=== PATIENT | male | born 1950 | race Caucasian/White ===

== ENCOUNTER 2023-10-16 07:06 | Day surgery (SDC) | payer MEDICARE, SELFPAY ==
[2023-10-08 08:11] LABS: Hematocrit 43.7 % (40-54); Mean Corpuscular Hgb 30.8 pg (27.0-32.0); Mean Corpuscular Volume 96.3 fL (80-94); Mean Platelet Vol. 10.3 fl (6.2-12.0); Platelet Count 209 K/mm3 (150-450); RBC Distribution Width CV 13.9 % (11.6-14.6); RBC Distribution Width SD 49.4 fl (35.1-43.9); Red Blood Count 4.54 M/mm3 (4.6-6.2)
[2023-10-08 08:49] LABS: Anion Gap 4 (5-15); BUN 41 mg/dL (7-18); BUN/Creat Ratio 23.3 RATIO (10-20); Chloride 111 mmol/L (98-107); Creatinine, Serum 1.76 mg/dL (0.70-1.30); EST Glomerular Filtration Rate 40 mL/min (>60); Est Glom Filt Rate - Afr Amer 49 mL/min (>60); Glucose 76 mg/dL (74-106); Potassium 4.6 mmol/L (3.5-5.1); Sodium Level 142 mmol/L (136-145)
[2023-10-16] VITALS (13 sets, daily range): BP systolic 130–174; BP diastolic 74–92; PULSE 57–85; RESP 16–18; TEMP 36.2–36.8; O2SAT 95–100; BMI 18.1
--- OUTSIDE RECORDS SUMMARY | 2023-10-16 07:16 | XMS RPT_ITS | CCD ---
Author Name Unknown Address [address] [place] [address] Organization [facility] Care Team Providers Care Barrel Driller Name Role Phone SHWETA DO, DR GLORIA Davis Primary Care Physician SHWETA DO, DR GLORIA Davis Primary Care Unavailabl e SHWETA DO, DR GLORIA Davis Attending Unavailabl e SHWETA DO, DR GLORIA Davis Primary Care Unavailabl e SHWETA DO, DR GLORIA Davis Attending Unavailabl e SHWETA DO, DR GLORIA Davis Primary Care Unavailabl e SHWETA DO, DR GLORIA Davis Attending Unavailabl e SHWETA DO, DR GLORIA Davis Primary Care Unavailbrain ORONA MD, DR ISIS Davis Attending Unavailable SHWETA DO, DR GLORIA Davis Primary Care Unavailabl e DESHAWNROBERTO Attending Unavailable SHWETA DO, DR GLORIA Davis Primary Care Unavailabl e ROBERTO HESS Attending Unavailable SHWETA DO, DR GLORIA Davis Primary Care Unavailbrain ORONA MD, DR ISIS Davis Attending Fazal CARRINGTON MD, FRANDY Reinoso Consulting Swapna APPIAH MD, DR ROLY Oviedo Attending Gretchen APPIAH MD, DR ROLY Oviedo Admitting Unavai lable SHWETA DO, DR GLORIA Davis Primary Care Unavailabl e LASKOVSKI , NESSA Consulting Swapna APPIAH MD, DR ROLY Oviedo Attending Gretchen lable SHWETA , DR GLORIA Davis Primary Care Unavailabl e Allergies Allergy Classification Reported Allergen(s) Allergy Type Date of Onset Reaction(s) Facility (9 sources) Warfarin; Translations: [warfarin] Drug Allergy Headache [facility] Medications Current Medications Medication Drug Class(es) Dates Sig (Normalized) Sig (Original) acetaminophen 500 mg / diphenhydrAMINE hydrochloride 25 mg oral tablet (3 sources) Histamine-1 Receptor Antagonist Start: 06-25-2023 take 1 tablet by mouth once daily in the evening Tylenol PM Extra Strength oral tablet Dose = 2 tab(s), Oral, qDay, 0 Refill(s) Start Date: 06/25/23 Status: Ordered amiodarone hydrochloride 200 mg oral tablet (3 sources) Antiarrhythmic Start: 06-26-2023 amiodarone 200 mg oral tablet Dose : 200 mg = 1 tab(s), Oral, BIDM, # 60 tab(s), 6 Refill(s), Pharmacy: [facility], 182.9, cm, 06/25/23 6:08:00 EDT, Height, kg, 06/25/23 6:08:00 EDT, Dosing Weight Start Date: 06/26/23 Status: Ordered apixaban 5 mg oral tablet (6 sources) Factor Xa Inhibitor Start: 03-25-2023 Eliquis 5 mg oral tablet Dose : 5 mg = 1 tab(s), Oral, BID, # 60 tab(s), 11 Refill(s), Pharmacy: [facility], 188, cm, 03/25/23 15:08:00 EDT, Height, 69 Start Date: 03/25/23 Status: Ordered aspirin 81 mg delayed release oral tablet (3 sources) Platelet Aggregation Inhibitor, Nonsteroidal Anti-inflammatory Drug Start: 06-08-2021 aspirin 81 mg oral delayed release tablet Dose : 81 mg = 1 tab(s), Oral, qDay, 0 Refill(s) Start Date: 06/08/21 Status: Ordered Completed/Discontinued Medications Medication Drug Class(es) Dates Sig (Normalized) Sig (Original) diazePAM 5 mg oral tablet (9 sources) Benzodiazepine Start: 04-03-2021 diazePAM 5 mg oral tablet 0.5 tab, Oral, QID, PRN Dizziness, 0 Refill(s), 69.8 Start Date: 04/03/21 Status: Ordered Problems Problem Classification Problem Date Documented Da te Episodic/Chronic Cancer of prostate (9 sources) History of malignant neoplasm of prostate 11-02-2021 Episodic Cardiac dysrhythmias (6 sources) Paroxysmal atrial fibrillation; Translations: [Persistent atrial fibrillation] 04-02-2021 Chronic Results Test Name Value Interpretation Reference Range Facil ity Vital Signs Date Time Vital Sign Value Performing Clinician Monaei lity 06-25-2023 09:15-0400 Diastolic Blood Pressure Non-Invasive [address] ROLY APPIAH MD [address] [place] [address] 06-25-2023 09:15-0400 Heart rate 70 /min DR ROLY APPIAH MD [address] [place] [address] 06-25-2023 09:15-0400 Respiratory rate 16 /min DR ROLY APPIAH MD [address] [place] [address] 06-25-2023 09:15-0400 Systolic Blood Pressure Non-Invasive [address] ROLY APPIAH MD [address] [place] [address] 06-25-2023 08:25-0400 Diastolic Blood Pressure Non-Invasive [address] ROLY APPIAH MD [address] [place] [address] 06-25-2023 08:25-0400 Heart rate 70 /min DR ROLY APPIAH MD [address] [place] [address] 06-25-2023 08:25-0400 Respiratory rate 16 /min DR ROLY APPIAH MD [address] [place] [address] 06-25-2023 08:25-0400 Systolic Blood Pressure Non-Invasive [address] ROLY APPIAH MD [address] [place] [address] 06-25-2023 08:14-0400 Diastolic Blood Pressure Non-Invasive [address] ROLY APPIAH MD [address] [place] [address] 06-25-2023 08:14-0400 Heart rate 71 /min DR ROLY APPIAH MD [address] [place] [address] 06-25-2023 08:14-0400 Respiratory rate 18 /min DR ROLY APPIAH MD [address] [place] [address] 06-25-2023 08:14-0400 Systolic Blood Pressure Non-Invasive [address] ROLY APPIAH MD [address] [place] [address] 06-25-2023 08:10-0400 Body temperature 98.42 [degF] DR ROLY APPIAH MD [address] [place] [address] 06-25-2023 08:05-0400 Respiratory Rate - Anes 0 br/min DR ROLY APPIAH MD [address] [place] [address] 06-25-2023 08:00-0400 Respiratory Rate - Anes 11 br/min DR ROLY APPIAH MD [address] [place] [address] 06-25-2023 07:55-0400 Respiratory Rate - Anes 0 br/min DR ROLY APPIAH MD [address] [place] [address] 06-25-2023 06:07-0400 Body height 182.[address] ROLY APPIAH MD [address] [place] [address] 06-25-2023 06:07-0400 Body temperature 96.44 [degF] DR ROLY APPIAH MD [address] [place] [address] 06-25-2023 06:07-0400 Body weight 66.[address] ROLY APPIAH MD [address] [place] [address] 06-25-2023 06:07-0400 Heart rate 90 /min DR ROLY APPIAH MD [address] [place] [address] 05-04-2023 07:32-0400 Heart rate 94 /min DR ROLY APPIAH MD [address] [place] [address] 05-04-2023 07:32-0400 Reason For Taking VItal Signs DR ROLY APPIAH MD [address] [place] [address] 05-04-2023 06:50-0400 Diastolic Blood Pressure Non-Invasive [address] ROLY APPIAH MD [address] [place] [address] 05-04-2023 06:50-0400 Heart rate 114 /min DR ROLY APPIAH MD [address] [place] [address] 05-04-2023 06:50-0400 Mean blood pressure 98 mm[Hg] DR ROLY APPIAH MD [address] [place] [address] 05-04-2023 06:50-0400 Reason For Taking VItal Signs DR ROLY APPIAH MD [address] [place] [address] 05-04-2023 06:50-0400 Systolic Blood Pressure Non-Invasive [address] ROLY APPIAH MD [address] [place] [address] 05-04-2023 06:38-0400 Blood Pressure Cuff Size DR ROLY APPIAH MD [address] [place] [address] 05-04-2023 06:38-[address] ROLY APPIAH MD [address] [place] [address] 05-04-2023 06:38-[address] ROLY Davis MD [address] [place] [address] 05-04-2023 06:38-0400 Body temperature 98.24 [degF] DR ROLY APPIAH MD [address] [place] [address] 05-04-2023 06:38-0400 Diastolic Blood Pressure Non-Invasive [address] ROLY APPIAH MD [address] [place] [address] 05-04-2023 06:38-0400 Heart rate 83 /min DR ROLY APPIAH MD [address] [place] [address] 05-04-2023 06:38-0400 Reason For Taking VItal Signs DR ROLY APPIAH MD [address] 05-04-2023 06:38-0400 Respiratory rate 16 /min DR ROLY APPIAH MD [address] [place] [address] 05-04-2023 06:38-0400 Systolic Blood Pressure Non-Invasive [address] ROLY APPIAH MD [address] [place] [address] 05-04-2023 04:19-0400 Blood Pressure Cuff Size DR ROLY APPIAH MD [address] [place] [address] 05-04-2023 04:19-[address] ROLY APPIAH MD [address] [place] [address] 05-04-2023 04:19-[address] ROLY Davis MD [address] [place] [address] 05-04-2023 04:19-0400 Body temperature 98.42 [degF] DR ROLY APPIAH MD [address] [place] [address] 05-04-2023 04:19-0400 Diastolic Blood Pressure Non-Invasive [address] ROLY APPIAH MD [address] [place] [address] 05-04-2023 04:19-0400 Mean blood pressure 93 mm[Hg] DR ROLY APPIAH MD [address] [place] [address] 05-04-2023 04:19-0400 Respiratory rate 16 /min DR ROLY APPIAH MD [address] [place] [address] 05-04-2023 04:19-0400 Systolic Blood Pressure Non-Invasive [address] ROLY APPIAH MD [address] [place] [address] 05-03-2023 23:24-0400 Blood Pressure Cuff Size DR ROLY APPIAH MD [address] [place] [address] 05-03-2023 23:24-[address] ROLY APPIAH MD [address] [place] [address] 05-03-2023 23:24-[address] ROLY Davis MD [address] [place] [address] 05-03-2023 23:24-0400 Body temperature 98.06 [degF] DR ROLY APPIAH MD [address] [place] [address] 05-03-2023 23:24-0400 Heart rate 70 /min DR ROLY APPIAH MD [address] [place] [address] 05-03-2023 23:24-0400 Respiratory rate 15 /min DR ROLY APPIAH MD [address] [place] [address] 05-03-2023 18:57-0400 Heart rate 70 /min DR ROLY APPIAH MD [address] [place] [address] 05-03-2023 18:51-0400 Body height [address] ROLY APPIAH MD [address] [place] [address] 05-03-2023 18:51-0400 Body weight 66.[address] ROLY APPIAH MD [address] [place] [address] 05-03-2023 18:51-0400 Body weight 18.9 kg/m2 DR ROLY APPIAH MD [address] [place] [address] 05-03-2023 15:40-0400 Respiratory Rate - Anes 0 br/min DR ROLY APPIAH MD [address] [place] [address] 05-03-2023 15:35-0400 Body temperature 97.34 [degF] DR ROLY APPIAH MD [address] [place] [address] 05-03-2023 15:35-0400 Respiratory Rate - Anes 0 br/min DR ROLY APPIAH MD [address] [place] [address] 05-03-2023 15:30-0400 Respiratory Rate - Anes 0 br/min DR ROLY APPIAH MD [address] [place] [address] 05-03-2023 15:05-0400 Body temperature 91.38 [degF] DR ROLY APPIAH MD [address] [place] [address] 05-03-2023 15:00-0400 Body temperature 89.98 [degF] DR ROLY APPIAH MD [address] [place] [address] 05-03-2023 14:55-0400 Body temperature 91.9 [degF] DR ROLY APPIAH MD [address] [place] [address] 05-03-2023 09:55-0400 Body height [address] ROLY APPIAH MD [address] [place] [address] 05-03-2023 09:55-0400 Body weight 66.[address] ROLY APPIAH MD [address] [place] [address] 05-03-2023 09:55-0400 Heart rate 84 /min DR ROLY APPIAH MD [facility] Encounters Encounter Date Encounter Type Care Provider Facility Start: 09-06-2023 End: 09-07-[address] GLORIA SNYDERR DO Facility:B Start: 09-06-2023 End: 09-06-[address] ROBERTO HESS MD [facility] Start: 07-26-2023 End: 07-27-[address] GLORIA HALL DO Facility:B Start: 06-25-2023 End: 06-25-[address] ROLY APPIAH MD Facility:A Start: 06-25-2023 End: 06-25-[address] ROLY APPIAH MD [facility] Start: 05-16-2023 End: 05-17-[address] GLORIA SNYDERR DO Facility:B Start: 05-07-2023 End: 05-08-[address] GLORIA SNYDERR DO Facility:B Start: 05-07-2023 End: 05-07-[address] GLORIA HALL DO [facility] Start: 05-07-2023 End: 05-08-[address] GLORIA SNYDERR DO Facility:B Start: 05-07-2023 End: 05-07-[address] GLORIA HALL DO [facility] Start: 05-03-2023 End: 05-04-2023 ambulatory FRANDY CARRINGTON MD Facility:A Start: 05-03-2023 End: 05-04-[address] ROLY APPIAH MD [facility] Start: 06-15-2022 End: 06-15-[address] ROBERTO HESS MD [facility] Start: 05-05-2022 End: 05-05-[address] GLORIA HALL DO [facility] Start: 11-09-2021 End: 11-09-[address] GLORIA HALL DO [facility] Procedures Date Procedure Procedure Detail Performing Clinician Start: 06-25-[address] ROBERTO MILLIGAN MD Immunizations Immunization Date Immunization Notes Care Provider Fa [facility] 07-01-2023 SARS-CoV-2 (COVID-19 ) [id number] DR ROBERTO HESS MD [facility] 06-15-2022 SARS-CoV-2 (CV19)mRNA-[address] ROBERTO HESS MD [facility] 06-15-2022 influenza, high dose seasonal, preservative-free DR ROBERTO HESS MD [facility] 11-02-2021 pneumococcal polysaccharide vaccine, 23 valent; Translations: [Pneumovax 23] DR GLORIA HALL DO [facility] 07-13-2021 SARS-CoV-2 (COVID-19 ) mRNA-[address] ROBERTO HESS MD [facility] 06-22-2021 influenza, high dose seasonal, preservative-free; Translations: [Fluad Quadrivalent PF ] DR GLORIA HALL DO [facility] 11-24-2020 SARS-CoV-2 (COVID-19 ) [id number] GLORIA HALL DO [facility] Payers Date Payer Category Payer Unknown [id number] 1950 Unknown [id number] 2.16.8 [id number] 1950 Unknown [id number] 2.16.8 [id number] 1950 Unknown [id number] 2.16.8 [id number] 1950 Unknown [id number] 2.16.8 [id number] 1950 Unknown [id number] 2.16.8 [id number] 1950 Unknown [id number] 2.16.8 [id number] 1950 Unknown [id number] 2.16.8 [id number] 1950 Unknown [id number] 2.16.8 [id number] 1950 Unknown [id number] 2.16.8 [id number] Social History Date Type Detail Facility Start: 09-16-2019 Never smoked tobacco (f inding) [facility] Functional Status Date Assessment Result Facility 06-25-2023 Functional Status Awake [facility] 06-25-2023 Functional Status [facility] 06-25-2023 Functional Status Maintained [facility] 05-04-2023 Functional Status None [facility] 05-04-2023 Functional Status Done [facility] 05-04-2023 Functional Status Non-Slip footw ear, Room check performed [facility] 05-04-2023 Functional Status [facility] 05-03-2023 Functional Status Sensory Deficits None [facility] 05-03-2023 Functional Status Patient Identified Verb [facility] 05-03-2023 Functional Status Maintained [facility] Mental Status Date Assessment Result Facility 06-25-2023 Mental Status Oriented x 4 [facility] 05-04-2023 Mental Status Orientation Oriented x 4 [facility] 05-04-2023 Mental Status [facility] 05-03-2023 Mental Status [facility] Clinical Notes 04-29-2023 to 06-25-2023 Note Date & Type Note Facility 06-25-2023 Hospital Discharg e instructions Patient Education 06/25/2023 08:38:38 3- Cardioversion (06/2018) (Custom) CARDIOVERSION Discharge instructions ACTIVITY/SAFETY Please refrain from the following activities for 24 hours: Do not drive a car or operate heavy equipment. Do not consume alcohol for 24 hours. Do not return to work for 24 hours. Postpone signing any important papers or making important decisions. COMFORT Call your primary doctor if you have any redness, tenderness, warmth, discharge or swelling at your IV site. Your chest or back may get red and/or develop a burning sensation. Apply fragrance-free Aloe Vera lotion. Take Tylenol as needed for pain. DIET When you return home, resume your regular diet unless otherwise directed. Some of the sedatives, anesthetic medications you received today may make you nauseated. If vomiting persists, call your doctor. Restart your usual medications unless otherwise instructed by your doctor. If you have any questions, please call your doctor at the number listed on your follow up instructions. Document Released: 08/26/2006 Document Revised: 08/12/2013 Document Reviewed: 08/27/2014 ExitCare Patient Information 2015 [employer]. This information is not intended to replace advice given to you by your health care provider. Make sure you discuss any questions you have with your health care provider. Follow Up Care 06/17/2023 14:08:59 With:ROLY APPIAH MD Address: [address] [facility] [address] [place] [address]- When:08/05/2023 14:30:00 [facility] 06-25-2023 Summary of episod e note Discharge Instructions Thank you for allowing [facility] to assist you with your healthcare needs. The following is important discharge information regarding your hospital visit. Your Care Team GLORIA HALL DO What to do next Scheduled Follow-Up Appointments Appointment Type When With Where Contact InformationCV OV 08/05/2023 02:30 PM EST [facility] Primetime Enhanced 05/07/2024 08:00 AM EDT GLORIA HALL DO [facility] [place] Follow Up Appointments Follow Up with ROLY APPIAH MD When 08/05/2023 02:30 PM EST Where: [address] [facility] [address] [place] [address]- The Following Activity and Diet Have Been Ordered for You Discharge Activity - Ordered -- Follow the post-operative/post-procedure activity instructions provided by your physician's office., 06/25/23 8:36:00 EDT Discharge Diet - Ordered -- Follow the post-operative/post-procedure diet instructions provided by your physician's office., 06/25/23 8:36:00 EDT The Following Equipment Has Been Ordered for You Discharge Home Equipment Discharge Wound Care - Ordered -- Follow the post-operative/post-procedure wound care instructions provided by your physician's office., 06/25/23 8:36:00 EDT The Following Treatments Have Been Ordered for You Discharge Labs No qualifying data available. Discharge Radiology No qualifying data available. Other Therapies No qualifying data available. Post Acute Orders No qualifying data available. Someone Will Contact You Regarding These Home Health Referrals No home referrals have been ordered for you. No one will call you. Allergies warfarin (Headache) Medications Please ask your primary doctor or pharmacist before taking any other medication not listed, including over the counter drugs, herbal medications, vitamins and or supplements as they may interact with your home medications. What How Much When Instructions Last Dose New amiodarone (amiodarone 200 mg oral tablet) 1 tab(s) by mouth Twice daily with meals Refills: [address] [facility] Unchanged acetaminophen-diphenhydramine (Tylenol PM Extra Strength oral tablet) 2 tab(s) by mouth Once a day Unchanged apixaban (Eliquis 5 mg oral tablet) 1 tab(s) by mouth Two (2) times a day Unchanged cetirizine (Zyrtec 10 mg oral tablet (NF)) 1 tab(s) by mouth Every day Unchanged diazePAM (diazePAM 5 mg oral tablet) 0.5 tab by mouth Four (4) times a day as needed for Dizziness Unchanged dilTIAZem (Cardizem CD 120 mg/ 24 hours oral capsule, extended release) 1 cap by mouth Once a day generic acceptable Unchanged herbal/ nutritional product (cranberry oral capsule) 1,500 Milligram Once a day Unchanged magnesium oxide (magnesium oxide 500 mg oral tablet) by mouth Once a day Unchanged meclizine (meclizine 25 mg oral tablet) 1 tab(s) by mouth Every 6 hours as needed for as needed for dizziness Unchanged multivitamin (Multivitamin) 1 tab(s) by mouth Every day Unchanged omega-3 polyunsaturated fatty acids (Fish Oil 1200 mg oral capsule) 1 cap by mouth Every day Unchanged omeprazole (omeprazole 20 mg oral delayed release capsule) 1 cap by mouth Once a day Pharmacy Information [facility]: [address], [place] [id number] [phone] Please take this list to your next doctor s visit. Bring all medications you take, including over the counter medications, herbals and other supplements with you to your doctor s visit. Patients and families are reminded to discard old lists and to update any records with all medication providers or retail pharmacies. Medication Leaflets amiodarone (oral) (Susan dale) Pacerone What is the most important information I should know about amiodarone? Amiodarone is for use only in treating life-threatening heart rhythm disorders. You should not take this medicine if you are allergic to amiodarone or iodine, or if you have heart block, a history of slow heartbeats that have caused you to faint, or if your heart cannot pump blood properly. Amiodarone can cause dangerous side effects on your heart, liver, lungs, or vision. Call your doctor or get medical help at once if you have: chest pain, fast or pounding heartbeats, trouble breathing, vision problems, upper stomach pain, vomiting, dark urine, jaundice (yellowing of the skin or eyes), or if you cough up blood. What is amiodarone? Amiodarone affects the rhythm of your heartbeats. Amiodarone is used to help keep the heart beating normally in people with life-threatening heart rhythm disorders of the ventricles (the lower chambers of the heart that allow blood to flow out of the heart). Amiodarone is used to treat ventricular tachycardia or ventricular fibrillation. Amiodarone is for use only in treating life-threatening heart rhythm disorders. Amiodarone may also be used for purposes not listed in this medication guide. What should I discuss with my healthcare provider before taking amiodarone? You should not use this medicine if you are allergic to amiodarone or iodine, or if you have: a serious heart condition called 'AV block' (2nd or 3rd degree), unless you have a pacemaker; a history of slow heartbeats that have caused you to faint; or if your heart cannot pump blood properly. Amiodarone can cause dangerous side effects on your heart, liver, lungs, or thyroid. Tell your doctor if you have ever had: asthma or another lung disorder; liver disease; a thyroid disorder; vision problems; high or low blood pressure; an electrolyte imbalance (such as low levels of potassium or magnesium in your blood); or if you have a pacemaker or defibrillator implanted in your chest. Taking amiodarone during may harm an unborn baby, or cause thyroid problems or abnormal heartbeats in the baby after it is born. Amiodarone may also affect the child's growth or development (speech, movement, academic skills) later in life. Tell your doctor if you are or if you become . You should not breast-feed while taking amiodarone, and for several months after stopping. Amiodarone takes a long time to clear from your body. Talk to your doctor about the best way to feed your baby during this time. How should I take amiodarone? Follow all directions on your prescription label and read all medication guides or instruction sheets. Your doctor may occasionally change your dose. Use the medicine exactly as directed. You will receive your first few doses in a hospital setting, where your heart rhythm can be monitored. If you have been taking another heart rhythm medicine, you may need to gradually stop taking it when you start using amiodarone. Follow your doctor's dosing instructions very carefully. You may take amiodarone with or without food, but take it the same way each time. It may take up to 3 weeks before your heart rhythm improves. Keep using the medicine as directed even if you feel well. Amiodarone can have long lasting effects on your body. You may need frequent medical tests while using this medicine and for several months after your last dose. If you need surgery (including laser eye surgery), tell the surgeon ahead of time that you are using amiodarone. This medicine can affect the results of certain medical tests. Tell any doctor who treats you that you are using amiodarone. Store at room temperature away from moisture, heat, and light. What happens if I miss a dose? Skip the missed dose and use your next dose at the regular time. Do not use two doses at one time. What happens if I overdose? Seek emergency medical attention or call the Poison Help line at . An overdose of amiodarone can be fatal. Overdose symptoms may include weakness, slow heart rate, feeling light-headed, or loss of consciousness. What should I avoid while taking amiodarone? Avoid driving or hazardous activity until you know how this medicine will affect you. Your reactions could be impaired. Grapefruit may interact with amiodarone and lead to unwanted side effects. Avoid the use of grapefruit products. Avoid taking an herbal supplement containing [place] wort. Amiodarone could make you sunburn more easily. Avoid sunlight or tanning beds. Wear protective clothing and use sunscreen (SPF 30 or higher) when you are outdoors. What are the possible side effects of amiodarone? Get emergency medical help if you have signs of an allergic reaction: hives; difficulty breathing; swelling of your face, lips, tongue, or throat. Amiodarone takes a long time to completely clear from your body. You may continue to have side effects from amiodarone after you stop using it. Call your doctor at once if you have any of these side effects, even if they occur up to several months after you stop using amiodarone: wheezing, cough, chest pain, cough with bloody mucus, fever; a new or a worsening irregular heartbeat pattern (fast, slow, or pounding heartbeats); a light-headed feeling, like you might pass out; blurred vision, seeing halos around lights (your eyes may be more sensitive to light); liver problems--nausea, vomiting, stomach pain (upper right side), tiredness, dark urine, jaundice (yellowing of the skin or eyes); nerve problems--loss of coordination, muscle weakness, uncontrolled muscle movement, or a prickly feeling in your hands or lower legs; signs of overactive thyroid--weight loss, thinning hair, feeling hot, increased sweating, tremors, feeling nervous or irritable, irregular menstrual periods, swelling in your neck (goiter); or signs of underactive thyroid--weight gain, tiredness, depression, trouble concentrating, feeling cold. Common side effects may include: nausea, vomiting, loss of appetite; or constipation. This is not a complete list of side effects and others may occur. Call your doctor for medical advice about side effects. You may report side effects to FDA at 1-926-FLH-6206. What other drugs will affect amiodarone? Sometimes it is not safe to use certain medications at the same time. Some drugs can affect your blood levels of other drugs you take, which may increase side effects or make the medications less effective. Amiodarone takes a long time to completely clear from your body. Drug interactions are possible for up to several months after you stop using amiodarone. Talk to your doctor before taking any medication during this time. Keep track of how long it has been since your last dose of amiodarone. Many drugs can affect amiodarone. This includes prescription and criv-loo-ooheekj medicines, vitamins, and herbal products. Not all possible interactions are listed here. Tell your doctor about all your current medicines and any medicine you start or stop using. Where can I get more information? Your doctor or pharmacist can provide more information about amiodarone. Remember, keep this and all other medicines out of the reach of children, never share your medicines with others, and use this medication only for the indication prescribed. Every effort has been made to ensure that the information provided by [employer]. ('[employer]') is accurate, up-to-date, and complete, but no guarantee is made to that effect. Drug information contained herein may be time sensitive. [employer] information has been compiled for use by healthcare practitioners and consumers in the [place] and therefore [employer] does not warrant that uses outside of the [place] are appropriate, unless specifically indicated otherwise. [employer] drug information does not endorse drugs, diagnose patients or recommend therapy. [employer] drug information is an informational resource designed to assist licensed healthcare practitioners in caring for their patients and/or to serve consumers viewing this service as a supplement to, and not a substitute for, the expertise, skill, knowledge and judgment of healthcare practitioners. The absence of a warning for a given drug or drug combination in no way should be construed to indicate that the drug or drug combination is safe, effective or appropriate for any given patient. [employer] does not assume any responsibility for any aspect of healthcare administered with the aid of information [employer] provides. The information contained herein is not intended to cover all possible uses, directions, precautions, warnings, drug interactions, allergic reactions, or adverse effects. If you have questions about the drugs you are taking, check with your doctor, nurse or pharmacist. Copyright 9390-6238 [employer]. Version: 7.01. Revision Date: 07/15/2018. Education Materials CARDIOVERSION Discharge instructions ACTIVITY/SAFETY Please refrain from the following activities for 24 hours: Do not drive a car or operate heavy equipment. Do not consume alcohol for 24 hours. Do not return to work for 24 hours. Postpone signing any important papers or making important decisions. COMFORT Call your primary doctor if you have any redness, tenderness, warmth, discharge or swelling at your IV site. Your chest or back may get red and/or develop a burning sensation. Apply fragrance-free Aloe Vera lotion. Take Tylenol as needed for pain. DIET When you return home, resume your regular diet unless otherwise directed. Some of the sedatives, anesthetic medications you received today may make you nauseated. If vomiting persists, call your doctor. Restart your usual medications unless otherwise instructed by your doctor. If you have any questions, please call your doctor at the number listed on your follow up instructions. Document Released: 08/26/2006 Document Revised: 08/12/2013 Document Reviewed: 08/27/2014 ExitCare Patient Information 2015 [employer] [facility]. This information is not intended to replace advice given to you by your health care provider. Make sure you discuss any questions you have with your health care provider. Additional Information VACCINATE! IT SAVES LIVES! Members of the community who have not yet received the COVID-19 vaccine and would like to receive it can visit one of [facility] vaccine clinics. There are many vaccine clinic locations within the [facility] [address] [facility]. For locations and available times, please visit [email or web address].o wao.gov/. It is important to note that some COVID mobile vaccine clinics are held outdoors and may be canceled in rainy or stormy conditions. To learn more about pediatric vaccinations (ages 5-11), we invite you to visit the [employer] webpage. https://[email or web address].org/p [email or web address]-Gyclg-Pykpvplvdou-Freq pgiapi-Idwet-Pvliggbsz.html To learn more about the COVID-19 vaccine, we invite you to visit the CDC website for a list of frequently asked questions.https://www.cdc.gov/co ronavirus/2019-ncov/vaccines/faq .html [facility] Patient Portal Access Instructions: Stay connected with your healthcare team and access your personal medical information anytime with the [facility] Patient Portal. Please follow the directions below to create your [facility] account: 1.Access the email account you provided upon registration to the hospital/physician office.2.Look for an invitation email from [facility].3.Open the email and access the invitation link: Accept Invitation to [facility].4.Fill in the required pugh to create your account. To access your account, visit [email or web address]. Click the blue button labeled Access Patient Portal and then log in with the username and password that you created in the steps above. You will be able to view your test results, lab results, a summary of your visits, upcoming appointments and more. There is also a convenient messaging option where you can send secure messages to your provider. In addition, you will have the ability to download any documents or summaries to your computer and/or send the information securely to a physician. Remember that your healthcare information is confidential, so carefully consider who you will allow to register on the [facility] for access to your information. You can also access the [facility] on the [place] [facility] ladarius. Simply click on Patient Portal and then log into your account. If you would like to receive a full copy of your medical records, please contact the [facility] Medical Records Department by calling [phone], Saturday through Saturday between 8 a.m. and 4:30 p.m. HOW TO SAFELY DISPOSE OF PRESCRIPTION MEDICATIONS Please use one of the following methods to safely dispose of your unused medications. 1.Use a drug disposal kit: the drug disposal pouch allows you to safely discard your old and unused drugs. Ask your nurse to give you one when you are discharged.2.Visit a local take-back location: Many local pharmacies and police departments have programs that collect old and unwanted prescription drugs. Call your local pharmacy or go to http://[employer]/6U8Oc4h to find one close to you.3.Make use of household items: Use cat litter or old coffee grounds to dispose medications if other options are not available. Mix your drugs with these household products, seal them in an airtight container and throw it into the garbage. Call [facility]: [phone] to be sure your drugs can be disposed of in this way. Some medicines may require a different approach.4.Never flush your medications down the toilet. IF YOU HAVE BEEN PRESCRIBED AN OPIOID FOR PAIN If you have been prescribed an opioid (such as hydrocodone, oxycodone or morphine), it is critical to understand the possible side effects and risks of opioid pain medications. Even when taken as directed, opioids can have several side effects including: Tolerance, meaning you might need to take more of a medication for the same pain relief. Nausea, vomiting and/or constipation. Sleepiness, dizziness, dry mouth, confusion, depression or itching. Physical dependence, meaning you have withdrawal symptoms when a medication is stopped, can develop within a few days. KNOW YOUR RESPONSIBILITIES It is important to know exactly how much and how often to take the opioid pain medications you are prescribed. Never take opioids in higher amounts or more often than prescribed. Do not combine opioids with alcohol or other drugs that cause drowsiness, such as benzodiazepines, also known as benzos, including diazepam and alprazolam, muscle relaxants or sleep aids. Never sell or share prescription opioids. This is illegal. Store opioids in a secure place and out of reach of others (including children, family, friends and visitors). The last page of this document has been signed and retained as a CHART COPY. Signatures Patient Education Materials 3- Cardioversion (06/2018) (Custom) Medication Leaflets amiodarone (oral) My discharge plan and instructions have been reviewed and explained to me and I,EVER MAGDALENO understand my current condition and have read and understand these discharge instructions. I have received a written copy of the plan/instructions. If I have questions, I am aware that I should contact my doctor. 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 Recurrent Persistent Atrial Fibrillation, CHADSVASC= 2, CRYO PVAI [05/03/23]. 2. Long QT interval. 3. Chronic Kidney Disease , medullary sponge kidney. 4. LVEF 57% [2020]. 5. GERD. 6. LENI. 7. Prostate CA hx. 8. Meniere's disease. Principal Procedure Performed: Successful DC Cardioversion. Discharge Medications: 1. Eliquis 5 mg twice daily. 2. Amiodarone 200 mg twice daily with meals starting June 26 (new prescription). 3. Cardizem CD 120 mg daily. 4. Cetirizine 10 mg daily. 5. Diazepam 5 mg tablet, 1/2 tablet 4 times daily as needed dizziness. 6. Magnesium oxide 500 mg daily. 7. Meclizine 25 mg every 6 hours as needed dizziness. 8. Multivitamin daily. 9. [place]-3 fish oil 1200 mg daily. 10. Omeprazole 20 mg daily. 11. Warfarin allergy (headache). Discharge instructions: Resume prior diet. Resume prior activity. Schedule follow-up visit with Dr. Appiah in approximately 6 weeks to review rhythm and symptoms. Summary: 73-year-old male presenting for direct-current cardioversion for recurrent persistent atrial fibrillation with debilitating symptoms. Please see history and physical (June 17 office EP note) for further details. Hospital course: The patient underwent successful direct-current cardioversion returning normal sinus rhythm. Occasional brief bursts of APCs were seen afterwards. It was decided to give the patient a single dose of amiodarone 400 mg p.o. before discharge, and start him on amiodarone 200 mg twice daily starting June 26 for better arrhythmia suppression. We will consider using this for 6 months to allow better remodeling to occur. Patient is eating and ambulating at the time of discharge. He will follow-up through our office in several weeks to review rhythm and symptoms. Roly Appiah MD, [facility], [facility] pager [phone] Digitally Signed by ROLY APPIAH MD on 06/25/2023 08:22 AM [facility] 06-25-2023 Physician Dischar ge summary DISCHARGE SUMMARY NOTEPCP: Shweta Patient: Ever Magdaleno medical record# [id number] date of Admission/Discharge: 06/25/23 Discharge diagnoses: 1. Recurrent Persistent Atrial Fibrillation, CHADSVASC= 2, CRYO PVAI [05/03/23]. 2. Long QT interval. 3. Chronic Kidney Disease , medullary sponge kidney. 4. LVEF 57% [2020]. 5. GERD. 6. LENI. 7. Prostate CA hx. 8. Meniere's disease. Principal Procedure Performed: Successful DC Cardioversion. Discharge Medications: 1. Eliquis 5 mg twice daily. 2. Amiodarone 200 mg twice daily with meals starting June 26 (new prescription). 3. Cardizem CD 120 mg daily. 4. Cetirizine 10 mg daily. 5. Diazepam 5 mg tablet, 1/2 tablet 4 times daily as needed dizziness. 6. Magnesium oxide 500 mg daily. 7. Meclizine 25 mg every 6 hours as needed dizziness. 8. Multivitamin daily. 9. [place]-3 fish oil 1200 mg daily. 10. Omeprazole 20 mg daily. 11. Warfarin allergy (headache). Discharge instructions: Resume prior diet. Resume prior activity. Schedule follow-up visit with Dr. Appiah in approximately 6 weeks to review rhythm and symptoms. Summary: 73-year-old male presenting for direct-current cardioversion for recurrent persistent atrial fibrillation with debilitating symptoms. Please see history and physical (June 17 office EP note) for further details. Hospital course: The patient underwent successful direct-current cardioversion returning normal sinus rhythm. Occasional brief bursts of APCs were seen afterwards. It was decided to give the patient a single dose of amiodarone 400 mg p.o. before discharge, and start him on amiodarone 200 mg twice daily starting June 26 for better arrhythmia suppression. We will consider using this for 6 months to allow better remodeling to occur. Patient is eating and ambulating at the time of discharge. He will follow-up through our office in several weeks to review rhythm and symptoms. Roly Appiah MD, [facility], [facility] pager [phone] Digitally Signed by ROLY APPIAH MD on 06/25/2023 08:22 AM [facility] 06-25-2023 Note DC CARDIOVERSION NOTEPCP: Shweta Patient: Ever Magdaleno medical record# [id number] date of Procedure: 06/25/23 INDICATION: Recurrent Persistent Atrial Fibrillation, s/p CRYO PVAI [05/03/23], Long QT interval, ckd. Antiarrhythmic: Cardizem CD 120mg qd. Anticoagulation: Eliquis 5mg bid (CHADSVASC= 2). Anesthesia: per Anesthesia (propofol). Procedure: The patient presented to [facility] in fasting well-hydrated state and administered iv anesthesia by Anesthesia personnel present throughout the case. Presenting rhythm AFIB with controlled V-response. DC Cardioversion A-P patch approach biphasic synch 150J successfully returned normal sinus rhythm. Occasional bursts of APCs seen. A/P: Successful DC Cardioversion. HOME TODAY. Start amiodarone 400mg PO x 1 today, then 200mg bid starting 06/26/23. Follow up thru office in several weeks to review rhythm and symptoms. Roly Appiah MD, [facility], [facility] pager [phone] Digitally Signed by ROLY APPIAH MD on 06/25/2023 08:15 AM [facility] 06-25-2023 Anesthesiology Consult note Patient: EVER MAGDALENO Age: 73 years Sex: Male : 1950 Associated Diagnoses: None Author: SHAW GONZALES DO Preoperative Information Greater than 6 hours Anesthesia history Patient's history: negative. Family's history: negative. Review of Systems Ear/Nose/Mouth/Throat: Negative except as documented in history of present illness. Respiratory: Negative except as documented in history of present illness. Cardiovascular: Negative except as documented in history of present illness. Gastrointestinal: Negative except as documented in history of present illness. Genitourinary: Negative except as documented in history of present illness. Endocrine: Negative except as documented in history of present illness. Musculoskeletal: Negative except as documented in history of present illness. Integumentary: Negative except as documented in history of present illness. Neurologic: Negative except as documented in history of present illness. Health Status Allergies: Nonallergic Reactions (Selected) Severity Not Documented Warfarin- Headache., Allergies (1) ActiveReaction warfarinHeadache Current medications: (Selected) Inpatient Medications Ordered NS 1,000 mL: Start: 06/25/23 5:00:00 EDT, 19 hour(s), Stop date 06/25/23 23:59:00 EDT, Rate: 20 mL/hr, 06/25/23 5:00:00 EDT Prescriptions Prescribed Cardizem CD 120 mg/24 hours oral capsule, extended release: Dose : 120 mg = 1 cap(s), Oral, qDay, generic acceptable, # 90 cap(s), 3 Refill(s), Pharmacy: [facility], 187, cm, 05/03/22 7:55:00 EDT, Height, kg, 05/03/22 7:55:00 EDT, Dosing Weight Eliquis 5 mg oral tablet: Dose : 5 mg = 1 tab(s), Oral, BID, # 60 tab(s), 11 Refill(s), Pharmacy: [facility], 188, cm, 03/25/23 15:08:00 EDT, Height, 69 meclizine 25 mg oral tablet: Dose : 25 mg = 1 tab(s), Oral, q6hr, PRN as needed for dizziness, # 30 tab(s), 1 Refill(s), Pharmacy: [facility], 187, cm, 11/02/21 7:59:00 EST, Height, kg, 11/02/21 7:59:00 EST, Dosing Weight omeprazole 20 mg oral delayed release capsule: Dose : 20 mg = 1 cap(s), Oral, qDay, # 90 cap(s), 3 Refill(s), Pharmacy: [facility], 186, cm, 05/06/23 8:38:00 EDT, Height, kg, 05/06/23 8:38:00 EDT, Dosing Weight Documented Medications Documented Fish Oil 1200 mg oral capsule: Dose : 1,200 mg = 1 cap(s), Oral, Daily, 0 Refill(s) Multivitamin: Dose = 1 tab(s), Oral, Daily, 0 Refill(s) Zyrtec 10 mg oral tablet (NF): Dose : 10 mg = 1 tab(s), Oral, Daily, # 90 tab(s), 0 Refill(s) diazePAM 5 mg oral tablet: 0.5 tab, Oral, QID, PRN Dizziness, 0 Refill(s), 69.8 magnesium oxide 500 mg oral tablet: mg = tab(s), Oral, qDay, 0 Refill(s), Medications (1) Active Scheduled: (0) Continuous: (1) NS (0.9% nacl) 1,000 mL 1,000 mL, Intravenous, 20 mL/hr PRN: (0) Problem list: Medical BENIGN HYPERTROPHY OF PROSTATE / SNOMED CT 401355158 / Confirmed cardioversion / Confirmed cardioversion 02-20-2006 / Confirmed CKD gfr 37 (05/2023) / SNOMED CT 7862561740 / Confirmed Deviated septum / SNOMED CT [id number] / Confirmed Fatigue / SNOMED CT 426359795 / Confirmed GERD - Gastro-esophageal reflux disease / SNOMED CT 9099982720 / Confirmed History of prostate cancer / SNOMED CT 0411853237 / Confirmed INTOLERANCE, DRUG / SNOMED CT 0829713846 / Confirmed MEDULLARY SPONGE KIDNEY (Renamed from CONGENITAL MEDULLARY SPONGE KIDNEY) / SNOMED CT 243286418 / Confirmed Meniere disease / SNOMED CT 412375713 / Confirmed ECHO: LVEF 57% [2020] / SNOMED CT 5521102368 / Confirmed Encounter for vaccination / SNOMED CT 091145610 / Confirmed AFIB- Persistent, CRYO PVAI [05/03/23], chadsvasc= 2 / SNOMED CT 5749523606 / Confirmed Long QT interval / SNOMED CT 395700700 / Confirmed Seasonal allergies / SNOMED CT [id number] E736 / Confirmed Sleep apnea / SNOMED CT 932224204 / Confirmed, Active Problems (17) AFIB- Persistent, CRYO PVAI [05/03/23], chadsvasc= 2 BENIGN HYPERTROPHY OF PROSTATE cardioversion cardioversion 02-20-2006 CKD gfr 37 (05/2023) Deviated septum ECHO: LVEF 57% [2020] Encounter for vaccination Fatigue GERD - Gastro-esophageal reflux disease History of prostate cancer INTOLERANCE, DRUG Long QT interval MEDULLARY SPONGE KIDNEY (Renamed from CONGENITAL MEDULLARY SPONGE KIDNEY) Meniere disease Seasonal allergies Sleep apnea Histories Past Medical History: Active Sleep apnea (075160606) Seasonal allergies ([id number]) GERD - Gastro-esophageal reflux disease (5928597990) Deviated septum ([id number]) Resolved Prostate cancer ([id number]): Resolved. MENIERE'S DISEASE (Renamed from MENIERE DISEASE) ([id number]): Resolved. VERTIGO (Renamed from HEAD REVOLVING AROUND) ([id number]): Resolved. Family History: Diabetes mellitus Mother () Heart disease Mother () Stroke Father () Malignant tumor of prostate Father () Procedure history: Ablation () on 05/03/2023 at 72 Years. Comments: 06/11/2023 16:55 Aidee Cantu LPN SUMMARY: 1. Successful CRYO PVAI with exit block all pulmonary veins. 2. Presenting rhythm fine atrial fibrillation w V-response 660ms, qrs 98ms, QTc 485ms. Post-PVAI atrial fibrillation continued. DCC 200J returned sinus rhythm cl 1056ms, which was maintained. 3. Esophagus coursed close to left pulmonary veins requiring some titration of energy. Large pulmonary veins. Right phrenic nerve coursed next to superior branch of RIPV. Freezing this branch for 10 seconds caused right hemidiaphragm paralysis for several minutes before recovering. 4. Normal Sinus Node function: SNRT 1490ms, cSNRT 434ms. 5. Normal Atrial refractoriness: AERP 600/240. 6. ABNORMAL AV Node function: AH 77ms, AVN Wenckebach 500ms, VA Block 350ms with all or none conduction pattern suggesting concealed accessory pathway. Dual-AVN physiology present with single AVN echo but no inducible tachycardia. 7. ABNORMAL HIS-Purkinje conduction: HV 66ms. 8. Normal Ventricular refractoriness: VERP rva 600/250, 400/240. Echocardiogram ([id number]) on 06/29/2021 at 71 Years. Comments: 07/03/2021 9:06 Amirah Renee RN Summary: 1. Left ventricle: The cavity size is normal. Wall thickness is normal. Systolic function is normal. The estimated ejection fraction is 55-60%. Wall motion is normal; there are no regional wall motion abnormalities. Normal diastolic function. 2. Aortic valve: There is trivial regurgitation. 3. Right ventricle: The RV systolic pressure by Doppler is 16 mm Hg. 4. Right atrium: The estimated right atrial pressure is 3 mm Hg. Cardiovascular stress testing ([id number]) on 04/27/2021 at 70 Years. Comments: 06/27/2021 13:48 Amirah Renee RN IMPRESSION: 1. No evidence for Lexiscan-induced ischemia. 2. Small apical infarct. 3. Dilated LEFT ventricle with an ejection fraction of 42% 4. No previous is for comparison. Control of epistaxis by cautery ([id number]) on 08/31/2017 at 67 Years. Comments: 09/01/2017 1:42 NEMESIO - AMERICO SAHU RN Post septoplasty Septoplasty or submucous resection, with or without cartilage scoring, contouring or replacement with graft ([id number]) on 08/29/2017 at 67 Years. Prostatectomy (335735556) in 2009 at 60 Years. Cardioversion (571628804) in 2005 at 56 Years. Cardioversion (744817548) in 2004 at 55 Years. Cardioversion (180270092) in 1998 at 49 Years. Appendectomy (706843268). Tonsillectomy and adenoidectomy (367605570). Inguinal hernia, left ([id number]). 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 Physical Examination General: Alert and oriented. Airway: Normal temporomandibular joint mobility, Normal mouth, Normal throat, Normal neck range of motion, Trachea midline. Mallampati classification: II (soft palate, fauces, uvula visible). Head: Normocephalic. Dentition Evaluation: Intact, Own teeth, Denies loose/chipped teeth. Neck: Supple. Respiratory: Lungs are clear to auscultation, Respirations are non-labored. Cardiovascular: Normal rate, No murmur. Heart Sounds: Normal. Gastrointestinal: Soft. Musculoskeletal Normal range of motion. Integumentary: Intact, Warm, Dry. Neurologic: Alert, Oriented. Assessment and Plan [place] [employer] Anesthesiologists (ASA) physical status classification: Class IV. Anesthetic Preoperative Plan Premedication: intravenous. Anesthetic technique: General. Induction: intravenously. Maintenance airway: Mask. Special techniques: Warming device. Special Monitoring. Postoperative pain management: Per surgeon. Risks discussed: nausea, vomiting, headache, sore throat, dental injury, hypotension, allergic reaction, serious complications. Informed consent: signed by patient. Beta Marychuy: Beta Marychuy Taken Within 24 Hrs: Yes. Digitally Signed by SHAW GONZALES DO on 06/25/2023 06:03 AM [facility] 05-07-2023 Note ORIGINAL EXAMINATION: ULTRASOUND OF THE THYROID WITH COLOR DOPPLER FLOW EVALUATION05/07/2023 11:40 am THYROID RAC COMPARISON: None HISTORY: ORDERING SYSTEM PROVIDED HISTORY: Reason for Exam: new onset mass of right lower neck FINDINGS: Size right thyroid lobe: 5.9 x 3.1 x 3.1 cm Size left thyroid lobe: 5.0 x 1.8 x 1.5 cm Size isthmus: 0.3 cm Estimated total number of nodules greater than or equal to 1 cm: 1 Nodule 1: Size: 4.4 x 4.1 x 3.2 cm Location: Right mid to inferior Composition: mixed cystic and solid: 1 point Echogenicity: anechoic: 0 points Shape: wider than tall: 0 points Margins: smooth: 0 points Echogenic foci: none: 0 points ACR Total Points: 1; ACR TI-RADS risk category: TR1 - not suspicious nodule There is a 4 mm colloid cystic nodule in the midpole of the left thyroid lobe. No additional focal thyroid lesion is identified. There is no evidence of cervical lymph node enlargement. No abnormal fluid collections are seen. IMPRESSION: 1. Nodule 1: ACR TI-RADS 2017 Category 1. Recommend: No further follow-up. This nodule, though measuring 4.4 cm, is nearly entirely cystic and has a benign appearance. Mild thyromegaly. ACR TI-RADS 2017 Recommendations: TR1: No FNA or follow up TR2: No FNA or follow up TR3: FNA if >/= 2.5 cm, follow up if 1.5 - 2.4 cm in 1, 3, and 5 years TR4: FNA if >/= 1.5 cm, follow up if 1.0 - 1.4 cm in 1, 2, 3, and 5 years TR5: FNA if >/= 1.0 cm, follow up if 0.5 - 0.9 cm every year for 5 years *ACR TI-RADS recommends that no more than two nodules with the highest ACR TI-RADS total point should be biopsied and no more than four nodules should be followed. Interpreted by: Randy Barron Preliminary Report By: Randy Barron Electronically signed By Randy Barron Dictated Date: 05/07/2023 1:35:20 PM Prelim Date: 05/07/2023 1:40:36 PM Sign Date: 05/07/2023 1:40:36 PM Ordering Provider: GLORIA HALL [facility] 05-04-2023 [facility] instructions Patient Education 05/04/2023 10:49:27 Cardiac Ablation, Care After Cardiac Ablation, Care After This sheet gives you information about how to care for yourself after your procedure. Your health care provider may also give you more specific instructions. If you have problems or questions, contact your health care provider. What can I expect after the procedure? After the procedure, it is common to have: Bruising around your puncture site. Tenderness around your puncture site. Skipped heartbeats. Tiredness (fatigue). Follow these instructions at home: Puncture site care Follow instructions from your health care provider about how to take care of your puncture site. Make sure you: ?Wash your hands with soap and water before you change your bandage (dressing). If soap and water are not available, use hand guest experience representative. ?Change your dressing as told by your health care provider. ?Leave stitches (sutures), skin glue, or adhesive strips in place. These skin closures may need to stay in place for up to 2 weeks. If adhesive strip edges start to loosen and curl up, you may trim the loose edges. Do not remove adhesive strips completely unless your health care provider tells you to do that. Check your puncture site every day for signs of infection. Check for: ?Redness, swelling, or pain. ?Fluid or blood. If your puncture site starts to bleed, lie down on your back, apply firm pressure to the area, and contact your health care provider. ?Warmth. ?Pus or a bad smell. Driving Ask your health care provider when it is safe for you to drive again after the procedure. Do not drive or use heavy machinery while taking prescription pain medicine. Do not drive for 24 hours if you were given a medicine to help you relax (sedative) during your procedure. Activity Avoid activities that take a lot of effort for at least 3 days after your procedure. Do not lift anything that is heavier than 10 lb (4.5 kg), or the limit that you are told, until your health care provider says that it is safe. Return to your normal activities as told by your health care provider. Ask your health care provider what activities are safe for you. General instructions Take aijs-oyg-ygjnirv and prescription medicines only as told by your health care provider. Do not use any products that contain nicotine or tobacco, such as cigarettes and e-cigarettes. If you need help quitting, ask your health care provider. Do not take baths, swim, or use a hot tub until your health care provider approves. Do not drink alcohol for 24 hours after your procedure. Keep all follow-up visits as told by your health care provider. This is important. Contact a health care provider if: You have redness, mild swelling, or pain around your puncture site. You have fluid or blood coming from your puncture site that stops after applying firm pressure to the area. Your puncture site feels warm to the touch. You have pus or a bad smell coming from your puncture site. You have a fever. You have chest pain or discomfort that spreads to your neck, jaw, or arm. You are sweating a lot. You feel nauseous. You have a fast or irregular heartbeat. You have shortness of breath. You are dizzy or light-headed and feel the need to lie down. You have pain or numbness in the arm or leg closest to your puncture site. Get help right away if: Your puncture site suddenly swells. Your puncture site is bleeding and the bleeding does not stop after applying firm pressure to the area. These symptoms may represent a serious problem that is an emergency. Do not wait to see if the symptoms will go away. Get medical help right away. Call your local emergency services (911 in the [place] Do not drive yourself to the hospital. Summary After the procedure, it is normal to have bruising and tenderness at the puncture site in your groin, neck, or forearm. Check your puncture site every day for signs of infection. Get help right away if your puncture site is bleeding and the bleeding does not stop after applying firm pressure to the area. This is a medical emergency. This information is not intended to replace advice given to you by your health care provider. Make sure you discuss any questions you have with your health care provider. Document Released: 12/05/2017 Document Revised: 08/08/2018 Document Reviewed: 12/05/2017 [employer] Patient Education 2020 [employer]. 05/04/2023 10:49:16 3- Heart Cath/PCI groin (06/2018)(CUSTOM) HEART CATHETERIZATION/PCI (groin) Discharge Instructions DIET INSTRUCTIONS Drink plenty of fluids for the next 48 hours to help your kidneys flush the heart cath dye out of your system ACTIVITIES May go up and down stairs CAREFULLY Do not drive car FOR 24 HOURS No heavy lifting GREATER THAN 10 POUNDS or pushing or straining FOR 2 DAYS Someone must stay with you at home after the procedure until the morning. BATHING/SHOWERING May tub bathe in 1 week May shower tomorrow WOUND CARE You will go home with a Band-Aid over your heart cath site. Keep a Band-Aid on for the next 24 hours and then leave open to air. Some degree of bruising and tenderness is normal around the heart cath site. It will take a while for any bruising to completely resolve. Keep your site clean and dry. You need to report the following to your vp information technology: Any draining or oozing from the site Any swelling at the site Any increased pain or tenderness at the site Any numbness in your leg where the procedure was done Any signs of infection IMPORTANT! CALL 911 FOR ANY BLEEDING OR SWELLING AT THE PROCEDURE SITE If there is any large amount of bleeding, you or someone else need to apply direct pressure to the site (just like the nurse did in the heart lab after your procedure). It is very important that you hold constant pressure. Do not release the pressure to check if the bleeding has stopped. You then need to be transported to the nearest emergency room. WATCH FOR SIGNS OF INFECTION (Usually appears 36-48 hours after surgery) A temperature above 100.5 Redness or swelling Increased pain Foul odor or drainage If you have any questions, please call your doctor at the number listed on your follow up instructions. Follow all instructions given to you by your physician Document Released: 08/26/2006 Document Revised: 08/12/2013 Document Reviewed: 08/27/2014 ExitCare Patient Information 2015 [employer]. This information is not intended to replace advice given to you by your health care provider. Make sure you discuss any questions you have with your health care provider. 05/04/2023 10:40:25 Cardiac Ablation, [id number] Cardiac Ablation Cardiac ablation is a procedure to stop some heart tissue from causing problems. The heart has many electrical connections. Sometimes these connections make the heart beat very fast or irregularly. Removing some problem areas can improve the heart rhythm or make it normal. What happens before the procedure? Follow instructions from your doctor about what you cannot eat or drink. Ask your doctor about: ?Changing or stopping your normal medicines. This is important if you take diabetes medicines or blood thinners. ?Taking medicines such as aspirin and ibuprofen. These medicines can thin your blood. Do not take these medicines before your procedure if your doctor tells you not to. Plan to have someone take you home. If you will be going home right after the procedure, plan to have someone with you for 24 hours. What happens during the procedure? To lower your risk of infection: ?Your health care team will wash or sanitize their hands. ?Your skin will be washed with soap. ?Hair may be removed from your neck or groin. An IV tube will be put into one of your veins. You will be given a medicine to help you relax (sedative). Skin on your neck or groin will be numbed. A cut (incision) will be made in your neck or groin. A needle will be put through your cut and into a vein in your neck or groin. A tube (catheter) will be put into the needle. The tube will be moved to your heart. X-rays (fluoroscopy) will be used to help guide the tube. Small devices (electrodes) on the tip of the tube will send out electrical currents. Dye may be put through the tube. This helps your surgeon see your heart. Electrical energy will be used to scar (ablate) some heart tissue. Your surgeon may use: ?Heat (radiofrequency energy). ?Laser energy. ?Extreme cold (cryoablation). The tube will be taken out. Pressure will be held on your cut. This helps stop bleeding. A bandage (dressing) will be put on your cut. The procedure may vary. What happens after the procedure? You will be monitored until your medicines have worn off. Your cut will be watched for bleeding. You will need to lie still for a few hours. Do not drive for 24 hours or as long as your doctor tells you. Summary Cardiac ablation is a procedure to stop some heart tissue from causing problems. Electrical energy will be used to scar (ablate) some heart tissue. This information is not intended to replace advice given to you by your health care provider. Make sure you discuss any questions you have with your health care provider. Document Released: 04/28/2014 Document Revised: 08/08/2018 Document Reviewed: 07/15/2017 [employer] Patient Education 2020 [employer]. Follow Up Care 03/25/2023 16:23:36 With:ROLY APPIAH MD Address: [address] [facility] [address] [place] [address] [phone] When:06/17/2023 13:45:00 [facility] 05-04-2023 Note Discharge Instructions Thank you for allowing [facility] to assist you with your healthcare needs. The following is important discharge information regarding your hospital visit. Your Care Team GLORIA HALL DO What to do next Scheduled Follow-Up Appointments Appointment Type When With Where Contact [facility] 05/06/2023 08:35 AM EDT GLORIA HALL DO [facility] [place] CV OV 06/17/2023 01:45 PM EDT [facility] Follow Up Appointments Follow Up with ROLY APPIAH MD When 06/17/2023 01:45 PM EDT Where: [address] [facility] [address] [place] [phone] The Following Activity and Diet Have Been Ordered for You No qualifying data available. No qualifying data available. The Following Equipment Has Been Ordered for You No qualifying data available. The Following Treatments Have Been Ordered for You Discharge Labs No qualifying data available. Discharge Radiology No qualifying data available. Other Therapies No qualifying data available. Post Acute Orders No qualifying data available. Someone Will Contact You Regarding These Home Health Referrals No home referrals have been ordered for you. No one will call you. Allergies warfarin (Headache) Medications Please ask your primary doctor or pharmacist before taking any other medication not listed, including over the counter drugs, herbal medications, vitamins and or supplements as they may interact with your home medications. What How Much When Instructions Last Dose Changed diazePAM (diazePAM 5 mg oral tablet) 0.5 tab by mouth Four (4) times a day as needed for Dizziness Unchanged apixaban (Eliquis 5 mg oral tablet) 1 tab(s) by mouth Two (2) times a day RESUME EVENING Saturday. Unchanged cetirizine (Zyrtec 10 mg oral tablet (NF)) 1 tab(s) by mouth Every day Unchanged dilTIAZem (Cardizem CD 120 mg/ 24 hours oral capsule, extended release) 1 cap by mouth Once a day generic acceptable Unchanged magnesium oxide (magnesium oxide 500 mg oral tablet) by mouth Once a day Unchanged meclizine (meclizine 25 mg oral tablet) 1 tab(s) by mouth Every 6 hours as needed for as needed for dizziness Unchanged multivitamin (Multivitamin) 1 tab(s) by mouth Every day Unchanged omega-3 polyunsaturated fatty acids (Fish Oil 1200 mg oral capsule) 1 cap by mouth Every day Unchanged omeprazole (omeprazole 20 mg oral delayed release capsule) 1 cap by mouth Once a day Please take this list to your next doctor s visit. Bring all medications you take, including over the counter medications, herbals and other supplements with you to your doctor s visit. Patients and families are reminded to discard old lists and to update any records with all medication providers or retail pharmacies. Education Materials Cardiac Ablation Cardiac ablation is a procedure to stop some heart tissue from causing problems. The heart has many electrical connections. Sometimes these connections make the heart beat very fast or irregularly. Removing some problem areas can improve the heart rhythm or make it normal. What happens before the procedure? Follow instructions from your doctor about what you cannot eat or drink. Ask your doctor about: ? Changing or stopping your normal medicines. This is important if you take diabetes medicines or blood thinners. ? Taking medicines such as aspirin and ibuprofen. These medicines can thin your blood. Do not take these medicines before your procedure if your doctor tells you not to. Plan to have someone take you home. If you will be going home right after the procedure, plan to have someone with you for 24 hours. What happens during the procedure? To lower your risk of infection: ? Your health care team will wash or sanitize their hands. ? Your skin will be washed with soap. ? Hair may be removed from your neck or groin. An IV tube will be put into one of your veins. You will be given a medicine to help you relax (sedative). Skin on your neck or groin will be numbed. A cut (incision) will be made in your neck or groin. A needle will be put through your cut and into a vein in your neck or groin. A tube (catheter) will be put into the needle. The tube will be moved to your heart. X-rays (fluoroscopy) will be used to help guide the tube. Small devices (electrodes) on the tip of the tube will send out electrical currents. Dye may be put through the tube. This helps your surgeon see your heart. Electrical energy will be used to scar (ablate) some heart tissue. Your surgeon may use: ? Heat (radiofrequency energy). ? Laser energy. ? Extreme cold (cryoablation). The tube will be taken out. Pressure will be held on your cut. This helps stop bleeding. A bandage (dressing) will be put on your cut. The procedure may vary. What happens after the procedure? You will be monitored until your medicines have worn off. Your cut will be watched for bleeding. You will need to lie still for a few hours. Do not drive for 24 hours or as long as your doctor tells you. Summary Cardiac ablation is a procedure to stop some heart tissue from causing problems. Electrical energy will be used to scar (ablate) some heart tissue. This information is not intended to replace advice given to you by your health care provider. Make sure you discuss any questions you have with your health care provider. Document Released: 04/28/2014 Document Revised: 08/08/2018 Document Reviewed: 07/15/2017 Elsevier Patient Education 2020 [employer]. Additional Information VACCINATE! IT SAVES LIVES! Members of the community who have not yet received the COVID-19 vaccine and would like to receive it can visit one of [facility] vaccine clinics. There are many vaccine clinic locations within the [facility]. For locations and available times, please visit https://[email or web address].o hio.gov/. It is important to note that some COVID mobile vaccine clinics are held outdoors and may be canceled in rainy or stormy conditions. To learn more about pediatric vaccinations (ages 5-11), we invite you to visit the [facility] webpage. [email or web address].[email or web address]/p [email or web address]-Nklts-[email or web address] [email or web address] To learn more about the COVID-19 vaccine, we invite you to visit the CDC website for a list of frequently asked questions.https://www.cdc.gov/co ronavirus/2019-ncov/vaccines/faq .html [facility] Patient Portal Access Instructions: Stay connected with your healthcare team and access your personal medical information anytime with the [facility] Patient Portal. Please follow the directions below to create your [facility] account: 1.Access the email account you provided upon registration to the hospital/physician office.2.Look for an invitation email from [facility].3.Open the email and access the invitation link: Accept Invitation to [facility].4.Fill in the required pugh to create your account. To access your account, visit [employer]. Click the blue button labeled Access Patient Portal and then log in with the username and password that you created in the steps above. You will be able to view your test results, lab results, a summary of your visits, upcoming appointments and more. There is also a convenient messaging option where you can send secure messages to your provider. In addition, you will have the ability to download any documents or summaries to your computer and/or send the information securely to a physician. Remember that your healthcare information is confidential, so carefully consider who you will allow to register on the [facility] Patient Portal for access to your information. You can also access the [facility] Patient Portal on the [employer] ladarius. Simply click on Patient Portal and then log into your account. If you would like to receive a full copy of your medical records, please contact the [facility] Medical Records Department by calling [phone], Saturday through Saturday between 8 a.m. and 4:30 p.m. HOW TO SAFELY DISPOSE OF PRESCRIPTION MEDICATIONS Please use one of the following methods to safely dispose of your unused medications. 1.Use a drug disposal kit: the drug disposal pouch allows you to safely discard your old and unused drugs. Ask your nurse to give you one when you are discharged.2.Visit a local take-back location: Many local pharmacies and police departments have programs that collect old and unwanted prescription drugs. Call your local pharmacy or go to http://[employer]/8T8Uz5k to find one close to you.3.Make use of household items: Use cat litter or old coffee grounds to dispose medications if other options are not available. Mix your drugs with these household products, seal them in an airtight container and throw it into the garbage. Call [facility]: [phone] to be sure your drugs can be disposed of in this way. Some medicines may require a different approach.4.Never flush your medications down the toilet. IF YOU HAVE BEEN PRESCRIBED AN OPIOID FOR PAIN If you have been prescribed an opioid (such as hydrocodone, oxycodone or morphine), it is critical to understand the possible side effects and risks of opioid pain medications. Even when taken as directed, opioids can have several side effects including: Tolerance, meaning you might need to take more of a medication for the same pain relief. Nausea, vomiting and/or constipation. Sleepiness, dizziness, dry mouth, confusion, depression or itching. Physical dependence, meaning you have withdrawal symptoms when a medication is stopped, can develop within a few days. KNOW YOUR RESPONSIBILITIES It is important to know exactly how much and how often to take the opioid pain medications you are prescribed. Never take opioids in higher amounts or more often than prescribed. Do not combine opioids with alcohol or other drugs that cause drowsiness, such as benzodiazepines, also known as benzos, including diazepam and alprazolam, muscle relaxants or sleep aids. Never sell or share prescription opioids. This is illegal. Store opioids in a secure place and out of reach of others (including children, family, friends and visitors). The last page of this document has been signed and retained as a CHART COPY. Signatures Patient Education Materials Cardiac Ablation, Wlwh-[id number] Medication Leaflets My discharge plan and instructions have been reviewed and explained to me and ICHANTELLE LARRY W understand my current condition and have read and understand these discharge instructions. I have received a written copy of the plan/instructions. If I have questions, I am aware that I should contact my doctor. 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 He tolerated the procedure well and will be discharged home to follow as an outpatient. Allergies warfarin (Headache) Procedures Cryotherapy pulmonary vein isolation 05/03/2023 Consults No qualifying data available. Physical Exam Vitals and Measurements T: 36.8 C (Oral) TMIN: 31.24 C TMAX: 36.9 C (Oral) HR: 94(Monitored) RR: 16 BP: 145/77 SpO2: 97% HT: 188 cm WT: 66.8 kg BMI: 18.9 Weight Dosing Weight: 66.8 kg (05/03/23) Dosing Weight: 66.8 kg (05/03/23) Physical Exam: General: well appearing, no acute distress Respiratory: normal chest wall expansion, CTA B, no r/r/w, no rubs Cardiovascular: RRR, no m/r/g, Normal S1 and S2 Abdomen: Soft, non-tender, non-distended, normal bowel sounds in all quadrants, no hepatosplenomegaly, no tympany Integumentary: warm, dry, and pink, with no rash, purpura, or petechia Neurological: 2+ patellar reflexes, Cranial Nerves II-XII grossly intact, no tics, normal sensation to pressure and light touch Code Status No qualifying data available. Admission Date 05/03/2023 Discharge Date 05/04/2023 Medications Changed diazePAM (diazePAM 5 mg oral tablet)0.5 tab by mouth four (4) times a day as needed Dizziness. Unchanged apixaban (Eliquis 5 mg oral tablet)1 tab(s) by mouth two (2) times a day. Refills: 11. cetirizine (Zyrtec 10 mg oral tablet (NF))1 tab(s) by mouth every day. dilTIAZem (Cardizem CD 120 mg/24 hours oral capsule, extended release)1 cap by mouth once a day. generic acceptable. Refills: 3. magnesium oxide (magnesium oxide 500 mg oral tablet)by mouth once a day. meclizine (meclizine 25 mg oral tablet)1 tab(s) by mouth every 6 hours as needed as needed for dizziness. Refills: 1. multivitamin (Multivitamin)1 tab(s) by mouth every day. omega-3 polyunsaturated fatty acids (Fish Oil 1200 mg oral capsule)1 cap by mouth every day. omeprazole (omeprazole 20 mg oral delayed release capsule)1 cap by mouth once a day. Refills: 3. Follow Up Follow Up with ROLY APPIAH MD When 06/17/2023 01:45 PM EDT Where: [address] [facility] [place] [address]- [phone] Follow Up Appointments No qualifying data available. Follow Up Labs/Studies Discharge Labs No Follow-up Labs Discharge Studies No Follow-up Studies Discharge Diet No qualifying data available. Discharge Activity No qualifying data available. Condition on Discharge Good Discharge Disposition Home Digitally Signed by ELIZABETH MEYERS MD on 05/04/2023 10:33 AM [facility] 05-03-2023 Note ELECTROPHYSIOLOGY STUDY & ABLATION NOTEPCP: Shweta GILBERT Patient: Ever Magdaleno medical record# [id number] date of Procedure: 05/03/23 PROCEDURE: 1. CRYO Pulmonary Vein Antral Isolation (PVAI) ablation. 2. Electrophysiology Study with 3D mapping (st yolanda). 3. Transeptal puncture for left atrial access. 4. Intracardiac Echocardiography & Vascular Ultrasound. 5. DC Cardioversion. 6. General anesthesia & iv anticoagulation. INDICATION: 1. Recurrent Persistent Atrial Fibrillation, CHADSVASC= 2, with debilitating symptoms. 2. Long QT. Medications: Eliquis, diltiazem. SUMMARY: 1. Successful CRYO PVAI with exit block all pulmonary veins. 2. Presenting rhythm fine atrial fibrillation w V-response 660ms, qrs 98ms, QTc 485ms. Post-PVAI atrial fibrillation continued. DCC 200J returned sinus rhythm cl 1056ms, which was maintained. 3. Esophagus coursed close to left pulmonary veins requiring some titration of energy. Large pulmonary veins. Right phrenic nerve coursed next to superior branch of RIPV. Freezing this branch for 10 seconds caused right hemidiaphragm paralysis for several minutes before recovering. 4. Normal Sinus Node function: SNRT 1490ms, cSNRT 434ms. 5. Normal Atrial refractoriness: AERP 600/240. 6. ABNORMAL AV Node function: AH 77ms, AVN Wenckebach 500ms, VA Block 350ms with all or none conduction pattern suggesting concealed accessory pathway. Dual-AVN physiology present with single AVN echo but no inducible tachycardia. 7. ABNORMAL HIS-Purkinje conduction: HV 66ms. 8. Normal Ventricular refractoriness: VERP rva 600/250, 400/240. RECOMMENDATIONS: Observe overnight. Bedrest 4 hours with legs still, then may ambulate. Remove Figure-of-8 Sutures/stopcocks from groin cath sites in am. Resume Diltiazem in am. Resume Eliquis Saturday evening 05/04/23. Resume prior diet. No lifting over 25 pounds for 48 hours. May shower. No tub bath or pool for 48 hours. Follow up thru office in 6-8 weeks. Procedure: The patient was brought to [facility] in the fasting well-hydrated state and prepped and draped in the usual sterile fashion. The 3D mapping patches were applied on the thorax prior to draping the patient. General anesthesia was administered by anesthesia personnel present throughout the case, during which time an esophageal thermistor probe was placed for localizing the esophagus and for monitoring temperature during ablation, regularly repositioning the probe to a site closest to the ablation catheter. Using modified Seldinger technique and Vascular Ultrasound, one biport venous sheath and additional venous sheath were placed in the left femoral vein, through which were advanced diagnostic EP catheters to the HIS and RV (and later RA) locations, and an intracardiac echocardiography (ICE) catheter under fluoroscopic guidance into the right atrium, and a baseline ICE study was performed. Baseline ICE demonstrated normal LA/RA. Left and right ventricular size and function were normal. Mitral, tricuspid, pulmonic, and aortic valve leaflets were grossly normal in appearance with normal exam. There were two left pulmonary veins, and two right pulmonary veins. There was no intracardiac mass or thrombus. There was no pericardial effusion. Subsequently, the ICE catheter was positioned on a plane to demonstrate the intraatrial septum and left pulmonary vein. Using modified Seldinger technique and Vascular Ultrasound, a long guidewire was placed into the right femoral vein up to the the SVC and the patient was administered iv heparin bolus and drip to a goal ACT of 300-400s. Over the guidewire was placed a LoiLo steerable sheath mounted on a ACU-Cross Transeptal needle/dilator. The guidewire was withdrawn back into the sheath, and With the fluoroscopy positioned in the SYRIAN position, the sheath was gradually withdrawn back into the RA until the tip tented against the intraatrial septum as verified by the ICE catheter. Transeptal puncture was performed verified by visualizing in the LA by ICE, as well as by passing a guidewire thru the needle/dilator assembly into the left pulmonary vein.The sheath was advanced while the guidewire and needle/dilator were removed resulting in one transseptal puncture and one sheath exiting in the left atrium. The sheath was carefully flushed and connected to heparinized saline solution. Through that sheath was advanced the TaazFront Advance CRYO-balloon and Achieve mapping catheter. An electro-anatomic map The left atrium and pulmonary veins was created. Cryoablation was then performed in a sequential manner starting with the left superior pulmonary vein, left inferior pulmonary vein, right inferior pulmonary vein, and right superior pulmonary vein. Ablation was performed during real-time analysis of the electrograms. Prior to ablating the right pulmonary veins, the HIS bundle catheter was repositioned in the SVC to pace the phrenic nerve while monitoring diaphragmatic contraction to assure no damage to the phrenic nerve during ablation. Approximately two freezes were performed on each vein. The LIPV required segmentation due to its large size. Upon completion of ablation, the mapping catheter was repositioned in each of the veins and pacing was performed to demonstrate exit block. Upon completing ablation and testing, the ablation system and transseptal sheath were removed from the left atrium with the ablation system removed from the body, and the sheath pulled back to the inferior vena cava. The HIS bundle catheter was repositioned, and programmed stimulation was performed starting with ventricular programmed stimulation, then repositioning the RV catheter into the right atrium and performing atrial programmed stimulation. At completion of testing, all catheters were removed from the body. A final ice study was performed and then this catheter was removed. The patient was recovered from anesthesia and administered IV protamine to reverse heparin effect. Local anesthesia with 1% lidocaine was administered to provide a numbing effect in the left and right femoral regions. Figure-of-8 sutures with 2-0 Ethibond was tied around each groin cath site, secured with stopcocks. The sheaths were pulled once the ACT level dropped below 160 seconds, and pressure was held until adequate hemostasis was obtained. Complications: None. Specimens: None. Estimated blood loss: 10 mL. Contrast: 15mL. Roly Appiah MD, [facility], [facility] pager [phone] Digitally Signed by ROLY APPIAH MD on 05/03/2023 05:49 PM [facility] 05-03-2023 Anesthesiology Progress note Patient: EVER MAGDALENO Age: 72 years Sex: Male : 1950 Associated Diagnoses: None Author: FRANDY CARRINGTON MD Postoperative Information Post Operative Info: Post op day: Post Anesthesia Care Unit. Patient location: Cardiac Mechanical Intern/Cardiac Same Day Unit. Assessment Postanesthesia assessment Vitals: Vital signs from flowsheet : Vital Signs 05/03/2023 16:00 EDT Heart Rate Monitored 60 bpm Respiratory Rate 20 br/min Systolic Blood Pressure Non-Invasive 160 mmHg HI Diastolic Blood Pressure Non-Invasive 83 mmHg 05/03/2023 15:55 EDT Heart Rate Monitored 64 bpm Respiratory Rate 20 br/min Systolic Blood Pressure Non-Invasive 157 mmHg HI Diastolic Blood Pressure Non-Invasive 88 mmHg 05/03/2023 15:50 EDT Heart Rate Monitored 67 bpm Respiratory Rate 16 br/min Systolic Blood Pressure Non-Invasive 165 mmHg HI Diastolic Blood Pressure Non-Invasive 84 mmHg 05/03/2023 15:45 EDT Heart Rate Monitored 61 bpm Respiratory Rate 12 br/min LOW Systolic Blood Pressure Non-Invasive 146 mmHg HI Diastolic Blood Pressure Non-Invasive 84 mmHg 05/03/2023 15:40 EDT Heart Rate Monitored 64 bpm Respiratory Rate 13 br/min LOW Respiratory Rate - Anes 0 br/min br/min Systolic Blood Pressure Non-Invasive 141 mmHg HI Diastolic Blood Pressure Non-Invasive 88 mmHg 05/03/2023 15:35 EDT Temperature Skin 36.3 DegC Heart Rate Monitored 61 bpm Respiratory Rate 12 br/min LOW Respiratory Rate - Anes 0 br/min br/min Systolic Blood Pressure Non-Invasive 147 mmHg HI Diastolic Blood Pressure Non-Invasive 85 mmHg 05/03/2023 15:30 EDT Respiratory Rate - Anes 0 br/min br/min 05/03/2023 15:25 EDT Respiratory Rate - Anes 0 br/min br/min 05/03/2023 15:20 EDT Heart Rate Monitored 64 bpm bpm Respiratory Rate - Anes 0 br/min br/min 05/03/2023 15:15 EDT Heart Rate Monitored 58 bpm bpm Respiratory Rate - Anes 0 br/min br/min 05/03/2023 15:10 EDT Heart Rate Monitored 52 bpm bpm Respiratory Rate - Anes 6 br/min br/min 05/03/2023 15:05 EDT Temperature (Route Not Specified) 32.99 DegC DegC Heart Rate Monitored 88 bpm bpm Respiratory Rate - Anes 8 br/min br/min 05/03/2023 15:00 EDT Temperature (Route Not Specified) 32.21 DegC DegC Heart Rate Monitored 56 bpm bpm Respiratory Rate - Anes 10 br/min br/min 05/03/2023 14:55 EDT Temperature (Route Not Specified) 33.28 DegC DegC Heart Rate Monitored 81 bpm bpm Respiratory Rate - Anes 10 br/min br/min 05/03/2023 14:50 EDT Temperature (Route Not Specified) 33.41 DegC DegC Heart Rate Monitored 58 bpm bpm Respiratory Rate - Anes 10 br/min br/min 05/03/2023 14:45 EDT Temperature (Route Not Specified) 33.5 DegC DegC Heart Rate Monitored 74 bpm bpm Respiratory Rate - Anes 10 br/min br/min 05/03/2023 14:40 EDT Temperature (Route Not Specified) 33.49 DegC DegC Heart Rate Monitored 54 bpm bpm Respiratory Rate - Anes 10 br/min br/min 05/03/2023 14:38 EDT Systolic Blood Pressure Non-Invasive 117 mmHg mmHg Diastolic Blood Pressure Non-Invasive 87 mmHg mmHg 05/03/2023 14:35 EDT Temperature (Route Not Specified) 33.48 DegC DegC Heart Rate Monitored 53 bpm bpm Respiratory Rate - Anes 19 br/min br/min 05/03/2023 14:30 EDT Temperature (Route Not Specified) 33.47 DegC DegC Heart Rate Monitored 76 bpm bpm Respiratory Rate - Anes 10 br/min br/min 05/03/2023 14:25 EDT Temperature (Route Not Specified) 33.41 DegC DegC Heart Rate Monitored 52 bpm bpm Respiratory Rate - Anes 10 br/min br/min 05/03/2023 14:20 EDT Temperature (Route Not Specified) 33.42 DegC DegC Heart Rate Monitored 88 bpm bpm Respiratory Rate - Anes 10 br/min br/min 05/03/2023 14:15 EDT Temperature (Route Not Specified) 33.51 DegC DegC Heart Rate Monitored 58 bpm bpm Respiratory Rate - Anes 10 br/min br/min 05/03/2023 14:10 EDT Temperature (Route Not Specified) 33.6 DegC DegC Heart Rate Monitored 84 bpm bpm Respiratory Rate - Anes 10 br/min br/min 05/03/2023 14:05 EDT Temperature (Route Not Specified) 33.67 DegC DegC Heart Rate Monitored 76 bpm bpm Respiratory Rate - Anes 10 br/min br/min 05/03/2023 14:00 EDT Temperature (Route Not Specified) 33.08 DegC DegC Heart Rate Monitored 72 bpm bpm Respiratory Rate - Anes 12 br/min br/min 05/03/2023 13:55 EDT Temperature (Route Not Specified) 33.23 DegC DegC Heart Rate Monitored 72 bpm bpm Respiratory Rate - Anes 12 br/min br/min 05/03/2023 13:50 EDT Temperature (Route Not Specified) 33.69 DegC DegC Heart Rate Monitored 78 bpm bpm Respiratory Rate - Anes 12 br/min br/min 05/03/2023 13:45 EDT Temperature (Route Not Specified) 31.24 DegC DegC Heart Rate Monitored 80 bpm bpm Respiratory Rate - Anes 12 br/min br/min 05/03/2023 13:42 EDT Systolic Blood Pressure Non-Invasive 122 mmHg mmHg Diastolic Blood Pressure Non-Invasive 93 mmHg mmHg 05/03/2023 13:40 EDT Temperature (Route Not Specified) 33.52 DegC DegC Heart Rate Monitored 81 bpm bpm Respiratory Rate - Anes 12 br/min br/min 05/03/2023 13:38 EDT Systolic Blood Pressure Non-Invasive 140 mmHg mmHg Diastolic Blood Pressure Non-Invasive 107 mmHg mmHg 05/03/2023 13:35 EDT Temperature (Route Not Specified) 33.97 DegC DegC Heart Rate Monitored 67 bpm bpm Respiratory Rate - Anes 10 br/min br/min 05/03/2023 13:30 EDT Temperature (Route Not Specified) 34.04 DegC DegC Heart Rate Monitored 74 bpm bpm Respiratory Rate - Anes 12 br/min br/min 05/03/2023 13:25 EDT Temperature (Route Not Specified) 34.13 DegC DegC Heart Rate Monitored 86 bpm bpm Respiratory Rate - Anes 12 br/min br/min 05/03/2023 13:20 EDT Temperature (Route Not Specified) 34.23 DegC DegC Heart Rate Monitored 77 bpm bpm Respiratory Rate - Anes 12 br/min br/min 05/03/2023 13:15 EDT Temperature (Route Not Specified) 34.29 DegC DegC Heart Rate Monitored 95 bpm bpm Respiratory Rate - Anes 12 br/min br/min 05/03/2023 13:10 EDT Temperature (Route Not Specified) 34.42 DegC DegC Heart Rate Monitored 81 bpm bpm Respiratory Rate - Anes 12 br/min br/min 05/03/2023 13:05 EDT Temperature (Route Not Specified) 34.55 DegC DegC Heart Rate Monitored 80 bpm bpm Respiratory Rate - Anes 12 br/min br/min 05/03/2023 13:00 EDT Temperature (Route Not Specified) 34.67 DegC DegC Heart Rate Monitored 88 bpm bpm Respiratory Rate - Anes 12 br/min br/min 05/03/2023 12:55 EDT Temperature (Route Not Specified) 34.8 DegC DegC Heart Rate Monitored 84 bpm bpm Respiratory Rate - Anes 12 br/min br/min Systolic Blood Pressure Non-Invasive 113 mmHg mmHg Diastolic Blood Pressure Non-Invasive 76 mmHg mmHg 05/03/2023 12:50 EDT Temperature (Route Not Specified) 34.88 DegC DegC Heart Rate Monitored 90 bpm bpm Respiratory Rate - Anes 12 br/min br/min 05/03/2023 12:45 EDT Temperature (Route Not Specified) 34.91 DegC DegC Heart Rate Monitored 93 bpm bpm Respiratory Rate - Anes 12 br/min br/min 05/03/2023 12:41 EDT Systolic Blood Pressure Non-Invasive 148 mmHg mmHg Diastolic Blood Pressure Non-Invasive 99 mmHg mmHg 05/03/2023 12:40 EDT Temperature (Route Not Specified) 34.67 DegC DegC Heart Rate Monitored 96 bpm bpm Respiratory Rate - Anes 12 br/min br/min 05/03/2023 12:38 EDT Systolic Blood Pressure Non-Invasive 154 mmHg mmHg Diastolic Blood Pressure Non-Invasive 106 mmHg mmHg 05/03/2023 12:37 EDT Systolic Blood Pressure Non-Invasive 150 mmHg mmHg Diastolic Blood Pressure Non-Invasive 100 mmHg mmHg 05/03/2023 12:35 EDT Heart Rate Monitored 108 bpm bpm Respiratory Rate - Anes 9 br/min br/min 05/03/2023 12:34 EDT Systolic Blood Pressure Non-Invasive 138 mmHg mmHg Diastolic Blood Pressure Non-Invasive 117 mmHg mmHg 05/03/2023 12:32 EDT Systolic Blood Pressure Non-Invasive 136 mmHg mmHg Diastolic Blood Pressure Non-Invasive 108 mmHg mmHg 05/03/2023 12:30 EDT Heart Rate Monitored 81 bpm bpm Respiratory Rate - Anes 0 br/min br/min 05/03/2023 12:29 EDT Systolic Blood Pressure Non-Invasive 151 mmHg mmHg Diastolic Blood Pressure Non-Invasive 104 mmHg mmHg 05/03/2023 12:25 EDT Respiratory Rate - Anes 0 br/min br/min 05/03/2023 9:55 EDT Temperature Oral 36.5 DegC Apical Heart Rate 84 bpm Respiratory Rate 18 br/min Systolic Blood Pressure Non-Invasive 114 mmHg Diastolic Blood Pressure Non-Invasive 92 mmHg HI , Oxygen Therapy : Oxygen Therapy & Oxygenation Information 05/03/2023 16:00 EDT Oxygen Saturation 98 % 05/03/2023 15:55 EDT Oxygen Saturation 99 % 05/03/2023 15:50 EDT Oxygen Saturation 96 % 05/03/2023 15:45 EDT Oxygen Therapy Room air Oxygen Saturation 100 % 05/03/2023 15:40 EDT Oxygen Saturation 100 % 05/03/2023 15:35 EDT Oxygen Therapy Simple mask Oxygen Saturation 100 % Oxygen Flow Rate 10 05/03/2023 15:20 EDT Oxygen Saturation 99 % % 05/03/2023 15:15 EDT Oxygen Saturation 99 % % 05/03/2023 15:10 EDT Oxygen Saturation 99 % % 05/03/2023 15:05 EDT Oxygen Saturation 99 % % 05/03/2023 15:00 EDT Oxygen Saturation 99 % % 05/03/2023 14:55 EDT Oxygen Saturation 98 % % 05/03/2023 14:50 EDT Oxygen Saturation 99 % % 05/03/2023 14:45 EDT Oxygen Saturation 99 % % 05/03/2023 14:40 EDT Oxygen Saturation 99 % % 05/03/2023 14:35 EDT Oxygen Saturation 99 % % 05/03/2023 14:30 EDT Oxygen Saturation 98 % % 05/03/2023 14:25 EDT Oxygen Saturation 98 % % 05/03/2023 14:20 EDT Oxygen Saturation 99 % % 05/03/2023 14:15 EDT Oxygen Saturation 99 % % 05/03/2023 14:10 EDT Oxygen Saturation 99 % % 05/03/2023 14:05 EDT Oxygen Saturation 99 % % 05/03/2023 14:00 EDT Oxygen Saturation 99 % % 05/03/2023 13:55 EDT Oxygen Saturation 99 % % 05/03/2023 13:50 EDT Oxygen Saturation 99 % % 05/03/2023 13:45 EDT Oxygen Saturation 99 % % 05/03/2023 13:40 EDT Oxygen Saturation 99 % % 05/03/2023 13:35 EDT Oxygen Saturation 99 % % 05/03/2023 13:30 EDT Oxygen Saturation 99 % % 05/03/2023 13:25 EDT Oxygen Saturation 99 % % 05/03/2023 13:20 EDT Oxygen Saturation 99 % % 05/03/2023 13:15 EDT Oxygen Saturation 99 % % 05/03/2023 13:10 EDT Oxygen Saturation 99 % % 05/03/2023 13:05 EDT Oxygen Saturation 99 % % 05/03/2023 13:00 EDT Oxygen Saturation 99 % % 05/03/2023 12:55 EDT Oxygen Saturation 99 % % 05/03/2023 12:50 EDT Oxygen Saturation 100 % % 05/03/2023 12:45 EDT Oxygen Saturation 99 % % 05/03/2023 12:40 EDT Oxygen Saturation 99 % % 05/03/2023 12:35 EDT Oxygen Saturation 100 % % 05/03/2023 12:30 EDT Oxygen Saturation 100 % % 05/03/2023 9:55 EDT Oxygen Therapy Room air Oxygen Saturation 98 % . Mental status: at preoperative baseline. Respiratory function: respirations are non-labored, Stable. Respiratory support: none. CV function: Stable. Cardiovascular support: none. Pain: Satisfactory. Nausea status: Satisfactory. Postoperative hydration status: within normal limits. Notes: Patient is sufficiently recovered from anesthesia to participate in the evaluation. No follow-up care needed. No complications post-anesthesia.. Digitally Signed by FRANDY CARRINGTON MD on 05/03/2023 04:09 PM [facility] HISTORY & PHYSICALPCP: Nav reinoso DO Patient: Ever Magdaleno medical record# [id number] date of Admission: 05/03/23 CC: Atrial Fibrillation and fatigue. HPI: 72 yr old male patient presenting for CRYO Pulmonary Vein Antral Isolation (PVAI) ablation for Recurrent Persistent Atrial Fibrillation, CHADSVASC= 2, with symptoms of palpitations, dyspnea, and fatigue. He does not tolerate stronger antiarrhythmic agents due to renal insufficiency and longer QT. LVEF 57%. He denies any angina, lightheadedness, or edema. ALLERGIES: Warfarin (headache). HOME MEDICATIONS: 1. Eliquis 5 mg twice daily, last dose 24 hours prior to procedure. 2. Diltiazem CD1 120 mg daily. 3. Cetirizine 10 mg daily. 4. Diazepam 5 mg tablet, 1/2 tablet 4 times daily as needed anxiety. 5. Ibuprofen 200 mg tablet, 2 tablets evenings. 6. Magnesium oxide 500 mg daily. 7. Meclizine 25 mg every 6 hours as needed dizziness. 8. Multivitamin daily. 9. [place]-3 fish oil 1200 mg daily. 10. Omeprazole 20 mg daily. Past medical history: 1. Recurrent Persistent Atrial Fibrillation, CHADSVASC= 2, with debilitating symptoms. 2. Obstructive Sleep Apnea. 3. GERD. 4. Prostate CA s/p prostatectomy 2009. 5. Chronic kidney disease, medulary sponge kidney. 6. Vertigo, Menieres disease. 7. Seasonal allergies. 8. Tonsillectomy & adenoidectomy, appendectomy. SHx: No tobacco use, no alcohol consumption. FHx: Father had prostate CA and CVA, Mother had heart disease and DM. RoS: Positives per HPI, remainder reviewed and negative. PE: 130/80 p88 irregular r20 Ht 188cm Wt 69kg bmi 19.5. CONSTITUTIONAL: Well-developed, well nourished, in no acute distress. HEAD: Normocephalic, atraumatic. EENT: Pupils round, reactive to light and accommodation. Extraoccular muscles intact. No ENT exudates. NECK: No jugular venous distention, no carotid bruits, no thyroid masses. LUNGS: Clear, normal respiratory excursion. COR: Apical impulse not displaced. irregular S1 S2, no S3, rub, click or murmur. ABD: Bowel sounds present, soft, nontender, no masses or pulsations. EXTREMITIES: Pulses 2+ bilaterally, no edema. SKIN: No rash or chronic skin infection. LYMPH: No lymphadenopathy noted. NEURO: Alert and oriented to person place time, no gross focal motor deficit. IMPRESSION: 1. Recurrent Persistent Atrial Fibrillation, CHADSVASC= 2, with debilitating symptoms. 2. Long QT. 3. Obstructive Sleep Apnea. 4. GERD. 5. Prostate CA s/p prostatectomy 2009. 6. Chronic kidney disease, medulary sponge kidney. 7. Vertigo, Menieres disease. 8. Seasonal allergies. PLAN: CRYO PVAI ablation. We will perform Electrophysiology study with 3D mapping (st yolanda), transeptal puncture for left atrial access, Intracardiac Echocardiography and Vascular Ultrasound. Findings reviewed with patient including risks of diagnoses. Proposed procedure and risks explained. Questions answered. He agrees to proceed. Roly Appiah MD, [facility], [facility] pager [phone] Future Appointments Appointment Date:05/06/2023 08:35:00 AM Scheduled Provider:GLORIA HALL DO Location:[facility] Appointment Type: Wellness Primetime Enhanced Appointment Date:06/17/2023 01:45:00 PM Scheduled Provider: Location:[facility] Appointment Type:CV OV [facility] 08-25-2023 Note* Exam Date Time Procedure Performing Provider Status 05/03/23 12:21 PM Ablation Cryo-Ensite - CV Auth (Verified) [facility] 08-25-2023 Anesthesiology Consult note Patient: EVER MAGDALENO Age: 72 years Sex: Male : 1950 Associated Diagnoses: None Author: FRANDY CARRINGTON MD Preoperative Information Greater than 8 hours Anesthesia history Patient's history: negative. Family's history: negative. Review of Systems Ear/Nose/Mouth/Throat: See Problem List. Respiratory: See Problem List. Cardiovascular: See Problem List. Gastrointestinal: See Problem List. Genitourinary: See Problem List. Endocrine: See Problem List. Musculoskeletal: See Problem List. Integumentary: See Problem List. Neurologic: See Problem List. See problem list and procedure results for specifics. Health Status Allergies: Nonallergic Reactions (Selected) Severity Not Documented Warfarin- Headache., Allergies (1) ActiveReaction warfarinHeadache Current medications: (Selected) Inpatient Medications Ordered NS 1,000 mL: 20 mL/hr, Intravenous Prescriptions Prescribed Cardizem CD 120 mg/24 hours oral capsule, extended release: 120 mg, 1 cap(s), Oral, qDay, generic acceptable, 90 cap(s), 3 Refill(s) Eliquis 5 mg oral tablet: 5 mg, 1 tab(s), Oral, BID, 60 tab(s), 11 Refill(s) meclizine 25 mg oral tablet: 25 mg, 1 tab(s), Oral, q6hr, PRN: as needed for dizziness, 30 tab(s), 1 Refill(s) omeprazole 20 mg oral delayed release capsule: 20 mg, 1 cap(s), Oral, qDay, 90 cap(s), 3 Refill(s) Documented Medications Documented Fish Oil 1200 mg oral capsule: 1,200 mg, 1 cap(s), Oral, Daily, 0 Refill(s) Multivitamin: 1 tab(s), Oral, Daily, 0 Refill(s) Zyrtec 10 mg oral tablet (NF): 10 mg, 1 tab(s), Oral, Daily, 90 tab(s), 0 Refill(s) diazePAM 5 mg oral tablet: 0.5 tab, Oral, QID, PRN: as needed for anxiety, 0 Refill(s) magnesium oxide 500 mg oral tablet: mg, tab(s), Oral, qDay, 0 Refill(s), Medications (1) Active Scheduled: (0) Continuous: (1) NS (0.9% nacl) 1,000 mL 1,000 mL, Intravenous, 20 mL/hr PRN: (0) Problem list: Medical BENIGN HYPERTROPHY OF PROSTATE / SNOMED CT 084473836 / Confirmed cardioversion / Confirmed cardioversion 02-20-2006 / Confirmed CKD gfr 40 / SNOMED CT 6780783293 / Confirmed Deviated septum / SNOMED CT [id number] / Confirmed Fatigue / SNOMED CT 397715609 / Confirmed GERD - Gastro-esophageal reflux disease / SNOMED CT 1590777391 / Confirmed History of prostate cancer / SNOMED CT 1314255011 / Confirmed INTOLERANCE, DRUG / SNOMED CT 0845403856 / Confirmed MEDULLARY SPONGE KIDNEY (Renamed from CONGENITAL MEDULLARY SPONGE KIDNEY) / SNOMED CT 197964241 / Confirmed Meniere disease / SNOMED CT 525126229 / Confirmed Encounter for vaccination / SNOMED CT 137869455 / Confirmed Seasonal allergies / SNOMED CT [id number] / Confirmed Sleep apnea / SNOMED CT 659740325 / Confirmed Resolved: MENIERE'S DISEASE (Renamed from MENIERE DISEASE) / SNOMED CT 056701854 Resolved: Prostate cancer / SNOMED CT [id number] Resolved: VERTIGO (Renamed from HEAD REVOLVING AROUND) / SNOMED CT 7738052017 Canceled: Atrial fibrillation / SNOMED CT [id number] Canceled: AF- Paroxysmal, chadsvasc= 1 / SNOMED CT 794899474, Active Problems (14) BENIGN HYPERTROPHY OF PROSTATE cardioversion cardioversion 02-20-2006 CKD gfr 40 Deviated septum Encounter for vaccination Fatigue GERD - Gastro-esophageal reflux disease History of prostate cancer INTOLERANCE, DRUG MEDULLARY SPONGE KIDNEY (Renamed from CONGENITAL MEDULLARY SPONGE KIDNEY) Meniere disease Seasonal allergies Sleep apnea Histories Past Medical History: Active Sleep apnea (487361208) Seasonal allergies ([id number]) GERD - Gastro-esophageal reflux disease (0326692010) Deviated septum ([id number]) Resolved Prostate cancer ([id number]): Resolved. MENIERE'S DISEASE (Renamed from MENIERE DISEASE) (178068401): Resolved. VERTIGO (Renamed from HEAD REVOLVING AROUND) ([id number]): Resolved. Family History: Diabetes mellitus Mother () Heart disease Mother () Stroke Father () Malignant tumor of prostate Father () Procedure history: Echocardiogram ([id number]) on 06/29/2021 at 71 Years. Comments: 07/03/2021 9:06 Amirah Renee RN Summary: 1. Left ventricle: The cavity size is normal. Wall thickness is normal. Systolic function is normal. The estimated ejection fraction is 55-60%. Wall motion is normal; there are no regional wall motion abnormalities. Normal diastolic function. 2. Aortic valve: There is trivial regurgitation. 3. Right ventricle: The RV systolic pressure by Doppler is 16 mm Hg. 4. Right atrium: The estimated right atrial pressure is 3 mm Hg. Cardiovascular stress testing ([id number]) on 04/27/2021 at 70 Years. Comments: 06/27/2021 13:48 Amirah Renee RN IMPRESSION: 1. No evidence for Lexiscan-induced ischemia. 2. Small apical infarct. 3. Dilated LEFT ventricle with an ejection fraction of 42% 4. No previous is for comparison. Control of epistaxis by cautery ([id number]) on 08/31/2017 at 67 Years. Comments: 09/01/2017 1:42 AMERICO WILLS RN Post septoplasty Septoplasty or submucous resection, with or without cartilage scoring, contouring or replacement with graft (57677) on 08/29/2017 at 67 Years. Prostatectomy (727178876) in 2009 at 60 Years. Cardioversion (618114265) in 2005 at 56 Years. Cardioversion (608964742) in 2004 at 55 Years. Cardioversion (767074132) in 1998 at 49 Years. Appendectomy (431790005). Tonsillectomy and adenoidectomy (035669621). Inguinal hernia, left ([id number]). 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 Physical Examination Vital Signs(last 24 hrs) Last Charted Temp Oral36.5 DegC (MAY 03 09:55) Resp Rate 18 br/min (MAY 03 09:55) JNE370 mmHg (MAY 03 09:55) DBPH 92mmHg (MAY 03 09:55) General: Alert and oriented. Airway: Normal temporomandibular joint mobility, Normal mouth, Normal throat, Normal neck range of motion, Trachea midline. Mallampati classification: II (soft palate, fauces, uvula visible). Head: Normocephalic. Dentition Evaluation: Intact, Own teeth, Chipped teeth, Denies loose/chipped teeth, Chipped R fronttooth . Neck: Supple. Respiratory: Lungs are clear to auscultation, Respirations are non-labored. Cardiovascular: Normal rate, No murmur. Heart Sounds: Normal. Neurologic: Alert, Oriented. Review / Management Results review: Labs (Last four charted values) WBC L 4.4(MAY 03) Hgb 15.9(MAY 03) Hct 47.3(MAY 03) Plt L 149(MAY 03) Na 144(MAY 03) K 4.6(MAY 03) CO2 28(MAY 03) Cl 108(MAY 03) Cr H 1.62(MAY 03) BUN H 37.0(MAY 03) Glucose 98(MAY 03) Ca 9.2(MAY 03) . Assessment and Plan [place] [employer] Anesthesiologists (ASA) physical status classification: Class III. Anesthetic Preoperative Plan Premedication: intravenous. Anesthetic technique: General. Induction: intravenously. Maintenance airway: Oral endotracheal tube. Special techniques: Warming device. Special Monitoring: Arterial line. Postoperative pain management: Per surgeon. Risks discussed: nausea, vomiting, headache, sore throat, dental injury, hypotension, allergic reaction, serious complications, Heart Problems, Lung Problems, Stroke, Intraoperative Recall, . Informed consent: signed by patient. Notes: After completion of focused history and physical examination, anesthetic options with their inherent risks and benefits were discussed. Common minor and rare but serious or potentially life-threatening complications were included in this discussion(Specific items discussed: nausea, sore throat, dysphagia, heart problems, lung problems, strokes, heart attacks, intraoperative recall and ). All of the patient's questions were answered. The patient verbalizes understanding of the agreed upon anesthetic plan and agrees to proceed.. Beta Marychuy: Beta Marychuy Taken Within 24 Hrs. Digitally Signed by FRANDY CARRINGTON MD on 05/03/2023 11:12 AM [id number] History and physical note HISTORY & PHYSICALPCP: Shweta DO Patient: Ever Magdaleno medical record# [id number] date of Admission: 05/03/23 CC: Atrial Fibrillation and fatigue. HPI: 72 yr old male patient presenting for CRYO Pulmonary Vein Antral Isolation (PVAI) ablation for Recurrent Persistent Atrial Fibrillation, CHADSVASC= 2, with symptoms of palpitations, dyspnea, and fatigue. He does not tolerate stronger antiarrhythmic agents due to renal insufficiency and longer QT. LVEF 57%. He denies any angina, lightheadedness, or edema. ALLERGIES: Warfarin (headache). HOME MEDICATIONS: 1. Eliquis 5 mg twice daily, last dose 24 hours prior to procedure. 2. Diltiazem CD1 120 mg daily. 3. Cetirizine 10 mg daily. 4. Diazepam 5 mg tablet, 1/2 tablet 4 times daily as needed anxiety. 5. Ibuprofen 200 mg tablet, 2 tablets evenings. 6. Magnesium oxide 500 mg daily. 7. Meclizine 25 mg every 6 hours as needed dizziness. 8. Multivitamin daily. 9. [place]-3 fish oil 1200 mg daily. 10. Omeprazole 20 mg daily. Past medical history: 1. Recurrent Persistent Atrial Fibrillation, CHADSVASC= 2, with debilitating symptoms. 2. Obstructive Sleep Apnea. 3. GERD. 4. Prostate CA s/p prostatectomy 2009. 5. Chronic kidney disease, medulary sponge kidney. 6. Vertigo, Menieres disease. 7. Seasonal allergies. 8. Tonsillectomy & adenoidectomy, appendectomy. SHx: No tobacco use, no alcohol consumption. FHx: Father had prostate CA and CVA, Mother had heart disease and DM. RoS: Positives per HPI, remainder reviewed and negative. PE: 130/80 p88 irregular r20 Ht 188cm Wt 69kg bmi 19.5. CONSTITUTIONAL: Well-developed, well nourished, in no acute distress. HEAD: Normocephalic, atraumatic. EENT: Pupils round, reactive to light and accommodation. Extraoccular muscles intact. No ENT exudates. NECK: No jugular venous distention, no carotid bruits, no thyroid masses. LUNGS: Clear, normal respiratory excursion. COR: Apical impulse not displaced. irregular S1 S2, no S3, rub, click or murmur. ABD: Bowel sounds present, soft, nontender, no masses or pulsations. EXTREMITIES: Pulses 2+ bilaterally, no edema. SKIN: No rash or chronic skin infection. LYMPH: No lymphadenopathy noted. NEURO: Alert and oriented to person place time, no gross focal motor deficit. IMPRESSION: 1. Recurrent Persistent Atrial Fibrillation, CHADSVASC= 2, with debilitating symptoms. 2. Long QT. 3. Obstructive Sleep Apnea. 4. GERD. 5. Prostate CA s/p prostatectomy 2009. 6. Chronic kidney disease, medulary sponge kidney. 7. Vertigo, Menieres disease. 8. Seasonal allergies. PLAN: CRYO PVAI ablation. We will perform Electrophysiology study with 3D mapping (st yolanda), transeptal puncture for left atrial access, Intracardiac Echocardiography and Vascular Ultrasound. Findings reviewed with patient including risks of diagnoses. Proposed procedure and risks explained. Questions answered. He agrees to proceed. Roly Appiah MD, [facility], [facility] pager [phone] Digitally Signed by ROLY APPIAH MD on 04/29/2023 06:42 PM [facility] + Plan note Future Appointments Appointment Date:01/02/2022 09:00:00 AM Scheduled Provider: Location:[facility] Appointment Type:CV OV Appointment Date:05/03/2022 08:00:00 AM Scheduled Provider:GLORIA HALL DO Location:[facility] Appointment Type:PC OV [facility] Evaluation + Plan note Future Appointments Appointment Date:05/06/2023 08:35:00 AM Scheduled Provider:GLORIA HALL DO Location:[facility] [facility] + Plan note Future Appointments Appointment Date:06/17/2023 01:45:00 PM Scheduled Provider: Location:[facility] Appointment Type:CV OV Appointment Date:05/07/2024 08:00:00 AM Scheduled Provider:GLORIA HALL DO Location:[facility] Appointment Type:[facility] Evaluation + Plan note Future Appointments Appointment Date:08/05/2023 02:30:00 PM Scheduled Provider: Location:[facility] Appointment Type:CV OV Appointment Date:05/07/2024 08:00:00 AM Scheduled Provider:GLORIA HALL DO Location:[facility] Appointment Type: Wellness [facility] Future Scheduled Tests Laboratory* Basic Metabolic Panel 05/08/23 [facility] Evaluation + Plan note Future Appointments Appointment Date:12/03/2023 11:45:00 AM Scheduled Provider: Location:[facility] Appointment Type:CV OV Appointment Date:05/07/2024 08:00:00 AM Scheduled Provider:GLORIA HALL DO Location:[facility] Appointment Type:PC Wellness [facility] Future Scheduled Tests Laboratory* Basic Metabolic Panel 05/08/23 [facility] Hospital course Narrative No data available for this section [facility] Hospital Discharge instructions No data available for this section [facility] Progress note No data available for this section [facility] Summary Purpose Family History No Family History Records Found Advance Directives No Advanced Directives Records Found Additional Source Comments Care Team (unrecognized sect ion and content) Care Team Personnel Name: GLORIA HALL DO Position: P4 Physician - Primary Care Member Role: Primary Care Physician Address: Address: [facility] [address] Care Team Related Persons Name: IRENE MAGDALENO Address: Home [address] [id number] Care Team Personnel Name: GLORIA HALL DO Position: P4 Physician - Primary Care Med Service: Active Provider Member Role: Primary Care Physician Address: Address: [facility] [address] Care Team Related Persons Name: IRENE MAGDALENO Address: Home [address] [place], [place] [id number] [place] Patient Care team informatio n (unrecognized section and content) Care Team Personnel Name: GLORIA HALL DO Position: P4 Physician - Primary Care Member Role: Primary Care Physician Address: Address: [facility] [address] Care Team Related Persons Name: IRENE MAGDALENO Address: Home [address] [place], [place] [id number] [place] Care Team Personnel Name: GLORIA HALL DO Position: P4 Physician - Primary Care Member Role: Primary Care Physician Address: Address: [facility] [address] [place] [id number]- [place] Name: Karen Caputo Position: Quality Review Member Role: Examination Proctor Care Team Related Persons Name: IRENE MAGDALENO Address: Home [address] [facility] [place], [place] [id number] Care Team Personnel Name: GLORIA HALL DO Position: P4 Physician - Primary Care Member Role: Primary Care Physician Address: Address: [address] Name: Karen Caputo Position: Quality Review Member Role: Examination Proctor Care Team Related Persons Name: IRENE MAGDALENO Address: Home [address] [facility] [place] [place], [place] [id number] Care Team Personnel Name: GLORIA HALL DO Position: P4 Physician - Primary Care Member Role: Primary Care Physician Address: Address: [address] [place], [place] [address] [place] [address] Name: Karen Caputo Position: Quality Review Member Role: Examination Proctor Care Team Related Persons Name: IRENE MAGDALENO Address: Home [address] [facility] [place], [place] [id number] Care Team Personnel Name: GLORIA HALL DO Position: P4 Physician - Primary Care Member Role: Primary Care Physician Address: Address: [address] [place], [place] [address] [place] [address] Name: Karen Caputo Position: Quality Review Member Role: Examination Proctor Care Team Related Persons Name: IRENE MAGDALENO Address: Home [address] [facility] [place], [place] [id number] Care Team Personnel Name: GLORIA HALL DO Position: P4 Physician - Primary Care Member Role: Primary Care Physician Address: Address: [address] [place], [place] [address] [place] [address] Name: Karen Caputo Position: Quality Review Member Role: Examination Proctor Care Team Related Persons Name: IRENE MAGDALENO Address: Home [address] [facility] [place], [place] [phone] (unrecognized sect ion and content) No Status Records Found INFORMATION SOURCE (unrecogn ized section and content) FOR RECORDS PERTAINING TO PATIENTS WHO ARE OR HAVE BEEN ENROLLED IN A CHEMICAL DEPENDENCY/SUBSTANCEABUSE PROGRAM, SOME INFORMATION MAY BE OMITTED. This clinical summary was aggregated from multiple sources. Caution should be exercised in using it in the provision of clinical care. This summary normalizes information from multiple sources, and as a consequence, information in this document may materially change the coding, format and clinical context of patient data. In addition, data may be omitted in some cases. CLINICAL DECISIONS SHOULD BE BASED ON THE PRIMARY CLINICAL RECORDS. [facility]. provides no warranty or guarantee of the accuracy or completeness of information in this document.
[2023-10-16] MEDS: Lactated Ringers 1,000 ML 15 ML IV (07:42)
--- NOTE | 2023-10-16 09:00 | MASS_PTH ---
PATHOLOGY RESULTS PATIENT: EVER LOCKHART [place] [facility] [place][id number] AGE/SX: 73/M ROOM: RE10/16/[address]: Dr. Jonathan Yi MD : [id number] BED: DIS: 10/17/2023 SPEC #: [id number] RECD: 10/17/23 07:36 STATUS: TYRA GONZALES #: [id number] ROSE MARIE: 10/16/23 09:[address]: Jonathan Yi DEPT: SURGICAL PATHOLOGY RECD BY: Jaja Beard ENTERED: 10/17/23 07:37 SP TYPE: Mass OTHR DR: Dr. 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 See comment. ARLETTE:boogie 10/18/2023 COMMENT The tumor is present at the inked resection margin. Focally tumor is also protruding into the adjacent adipose tissue. The tumor, however, appears to be completely excised. Clinical correlation and appropriate follow up are necessary. Case has been reviewed in consultation with Dr. Araujo who concurs with the above diagnosis. IDC:AM MICROSCOPIC DESCRIPTION Slides are reviewed. GROSS DESCRIPTION Received in fixative is one container labeled with the patient's name and designated left renal mass. The specimen consists of an ovoid fragment of edwards tissue measuring 2.3 x 2.2 x 2.1 cm. The external surface is inked and the specimen serially sectioned to reveal a yellow cut surface in which there are foci of hemorrhage. The specimen is serially sectioned and submitted entirely in six cassettes. / AM:boogie 10/17/2023 TC:1 CPT: 16810
--- NOTE | 2023-10-16 09:21 | HP.PCM_ITS ---
[facility] - General General Date of Service: 10/16/23 HPI Narrative EVER LOCKHART, is a 73 M who presents for a left partial nephrectomy for an enhancing solid mass in the upper pole left kidney [facility] Medical History (Updated 10/07/23 @ 15:24 by Liudmila Lambert) Cancer GERD (gastroesophageal reflux disease) History of atrial fibrillation History of cardioversion History of echocardiogram History of stress test Menieres disease Non-smoker Prostate disease Sleep apnea Thyroid disease Wears glasses Home Medications amiodarone 200 mg tablet 200 mg PO BID 10/07/23 [History Last Taken 10/16/23] apixaban 5 mg tablet (Eliquis) 5 mg PO BID 10/07/23 [History Last Taken 10/12/23] ascorbic acid (vitamin C) 500 mg tablet (Vitamin C) 500 mg PO DAILY 10/07/23 [History Last Taken Unknown] cetirizine 10 mg tablet (24Hour Allergy) 10 mg PO DAILY 10/07/23 [History Last Taken Unknown] diazepam 5 mg tablet 5 mg PO BID PRN dizziness or vertigo 10/07/23 [History Last Taken Unknown] magnesium 250 mg tablet 250 mg PO DAILY 10/07/23 [History Last Taken 10/15/23] meclizine 25 mg chewable tablet (Antivert) 25 mg PO DAILY PRN dizziness 10/07/23 [History Last Taken Unknown] multivitamin (Daily Multi-Vitamin tablet) 1 tab PO DAILY 10/07/23 [History Last Taken 10/15/23] omega 8-cfc-rnb-fish oil 1,200 mg (144 mg-216 mg) capsule (Fish Oil) 1 cap PO DAILY 10/07/23 [History Last Taken Unknown] omeprazole 20 mg capsule,delayed release 20 mg PO DAILY 10/07/23 [History Last Taken 10/16/23] Allergy/AdvReac Type Severity Reaction Status Date / Time warfarin Allergy Intermediate Other Verified 10/16/23 07:37 Surgical History History of appendectomy History of colonoscopy History of hernia repair (~2011) History of radical prostatectomy (~2009) History of robot-assisted laparoscopic radical prostatectomy (~2009) History of tonsillectomy Social History Smoking Status: Never smoker Vital Signs Vital Signs Vital Signs: 10/16/23 07:38 10/16/23 07:38 Temperature 97.3 F L Temperature Source Temporal Pulse Rate 75 Respiratory Rate 16 Respiratory Pattern Normal Blood Pressure 130/89 H Blood Pressure Mean 102 Blood Pressure Source Monitor Blood Pressure Position Sitting Blood Pressure Location Left Arm Pulse Ox 99 Oxygen Delivery Method Room Air Weight Weight: 64 kg Body Mass Index (BMI) 18.1 Results Lab / Micro Data 10/08/23 08:01 10/08/23 08:01
--- NOTE | 2023-10-16 09:24 | DCINST_ITS ---
Discharge Instructions Diet Discharge Diet: No restrictions Activity Discharge Activity: Return to Normal Activity and May Not Drive (while taking narcotic pain medications.) Dressing / Incision Call your doctor if you observe: Fever of 101 or Higher Follow Up Care Please Follow Up With: Jonathan Yi MD When: Call [phone] for an appointment Test Results: Test results from this visit will be discussed in further detail at your follow- up appointment, if applicable. Discharge Plan Admission Attending Provider: Jonathan Yi Primary Care Provider: Tin Rock Discharge Orders/Prescriptions Prescriptions: No Action Eliquis 5 mg tablet 5 mg PO BID amiodarone 200 mg tablet 200 mg PO BID Patient Comments: TAKE ONE TABLET BY MOUTH TWICE DAILY omeprazole 20 mg capsule,delayed release(DR/EC) 20 mg PO DAILY Patient Comments: TAKE ONE CAPSULE BY MOUTH EVERY DAY cetirizine [24Hour Allergy] 10 mg tablet 10 mg PO DAILY omega 0-ajz-slr-fish oil [Fish Oil] 1,200 (144-216) mg capsule 1 cap PO DAILY magnesium 250 mg tablet 250 mg PO DAILY multivitamin [Daily Multi-Vitamin] Tablet 1 tab PO DAILY ascorbic acid (vitamin C) [Vitamin C] 500 mg tablet 500 mg PO DAILY diazepam 5 mg tablet 5 mg PO BID PRN (Reason: dizziness or vertigo) meclizine [Antivert] 25 mg tablet,chewable 25 mg PO DAILY PRN (Reason: dizziness) Other Ambulatory Orders: 12 Lead EKG (Routine) Timeframe: 20231008 Location: None Selected Ordered By: Dr. Fracisco Chung Disposition Disposition (needs filled in before D/C Order can be placed): Home, Self Care
[2023-10-16] MEDS: Cefazolin 2 GM in 0.9% Normal Saline (100mL Bag) 100 ML IV (09:25)
[2023-10-16] MEDS: Bupivacaine Mpf 0.5% 30 ML VIAL (12:17)
--- NOTE | 2023-10-16 12:19 | OP.PCM_ITS ---
Report of Operation Date of Procedure: 10/16/23 Pre-Operative Diagnosis: Left renal mass enhancing Post-Operative Diagnosis: The same Surgery/Procedure Performed:: Laparoscopic robotic assisted left partial nephrectomy Description of Surgical Findings:: Indication is a 73-year-old male who has an enhancing mass in the left kidney very suspicious for a malignancy the mass is occupying the the hilar area of the left kidney very close to 6 significant large blood vessels feeding the kidney today working to proceed with a laparoscopic robotic assisted partial nephrectomy. The main risk discussed with the patient is a risk of bleeding bec ause of this tumor being very close to blood vessels. Patient was taken back to the operating room after smooth induction of anesthesia he was placed in flat on the operating room table supine he underwent general anesthesia with endotracheal intubation, he had a Diego catheter placed, we then placed him flank position left side up with the axillary roll in place of pressure points padded and secured to the table with no flexion we then placed his arm flat against the side. After he was secured and padded and make sure that he was in good position for the procedure we then prepped and draped the patient in usual fashion I then made an incision right at the above the umbilicus and probed the fascia and then placed the Veress needle into the fascia and then we insufflated the peritoneal cavity with CO2 gas then placed the camera trocar left arm trocar right arm trocar and a second right arm trocar. I then docked the robot and we started with our dissection first thing I did was mobilized the colon off the kidney and reflecting the white line of Toldt all the way down to the pelvis I then reflected the spleen off the kidney and the pancreas as well we then identified the gonadal vein and ureter went underneath this elevated the gonadal vein and ureter and elevate the kidney up I then dissected all the way down to the hilum into a encountered the large renal vein and the gonadal going into the renal vein we then dissected behind the renal vein and identified the renal artery that the renal artery was dissected completely just in case it would be necessary to clamp the artery. Once the kidney was mobilized and dissected out the hilum was dissected out then we went up to the kidney there was a large cyst on the kidney we used the laparoscopic drop-in ultrasound and identified the cyst and then we identified the tumor the tumor was anterior near the hilum right above one of the main arteries perforating into the kidney so in an off clamp fashion we started the dissection I circumferentially dissected all the way around the tumor the tumor off the parenchyma identified the pseudocapsule I then identified the plane between the tumor and the repeat renal artery and a slowly started elevating this tumor of the renal artery going inferior to the tumor and superior to the renal artery that is feeding the kidney as we are coming to this we encountered 1 small bleeding vessel this was cauterized and then we placed a Surgicel in this to control it and then as became deeper down to the tumors were peeling the tumor off the deep layers there was 1 perforating artery coming off the main renal artery perforating right into the tumor this caused some bleeding so had to put a clip on it the first clip fell off so he put a second clip and then a third clip and then that controlled the bleeding I then continued to elevate the tumor off the bed and following the pseudocapsule we elevated the tumor off until we were deep and then we identified the plane between the normal parenchyma the tumor and reflected the tumor off the normal parenchyma superiorly then the tumor came out completely we put the tumor in an Endo Catch bag and then I cauterized the base of the resection and make sure that there was a clear margin I then used 4-0 Prolene stitch to reinforce the clip on the renal artery that was used to control for bleeding just to make sure that this clip does not fall off since it was on the main branch of the renal artery and then we placed a clip then we placed another stitch in the parenchyma 2 or 3 stitches to control some spots that were bleeding then. Floseal and Surgicel was placed in the defect and then we used an 0 Vicryl suture to reapproximate the 2 edges of the defect and put compression with the Floseal Surgicel. Once this was done then the robot was undocked we opened up the umbilicus site and extracted the tumor within the umbilicus took about 10 minutes to do this I then closed the umbilicus with 2 [id number] 0 Vicryl stitches and then we looked back inside the abdomen and there was no bleeding whatsoever completely dry from the resection site. So with no pneumoperitoneum with no pressure from the pneumoperitoneum and with any pressure on the hilum after inspection there was no bleeding after 10 minutes and patient's blood pressure was also normal so at this point I think is safe to we extracted all the ports and working to closed all the ports subcuticular stitches patient's anesthetic is currently being reversed successful partial nephrectomy blood loss was about 85 cc. And is currently being reversed from anesthesia. Surgeon: Jonathan Yi Type of Anesthesia: General Drains: diego Estimated Blood Loss (mL): 100 Admit VTE Documentation VTE Present on Admission: No VTE Mechan Device Prophylaxis: SCD's VTE Pharm Prophylaxis ordered?: No
[2023-10-16] MEDS: 0.9% Normal Saline (1000mL) 1,000 ML 125 ML IV ×2 (15:03→21:28)
[2023-10-16] MEDS: Cefazolin 1 GM/50 ML BAG IV (17:02)
[2023-10-16] MEDS: Amiodarone 200 MG Tablet PO (21:28)
[2023-10-16] MEDS: Acetaminophen 325 MG Tablet PO (21:28)
[2023-10-16] MEDS: Docusate Sodium 100 MG Capsule 200 MG PO (21:28)
[2023-10-16] MEDS: 0.9% Saline Lock 10 ML Syringe IV (21:30)
[2023-10-17 00:10] VITALS: BP 136/71; PULSE 77; RESP 18; TEMP 36.9; O2SAT 96
[2023-10-17] MEDS: oxyCODONE 5 MG Tablet PO (00:14)
[2023-10-17 02:18] VITALS: PULSE 70; RESP 18; O2SAT 94
[2023-10-17] MEDS: Cefazolin 1 GM/50 ML BAG IV (02:41)
[2023-10-17 05:45] VITALS: BP 141/79; PULSE 72; RESP 18; TEMP 36.8; O2SAT 97
[2023-10-17] MEDS: 0.9% Normal Saline (1000mL) 1,000 ML 125 ML IV (05:54)
[2023-10-17] MEDS: Acetaminophen 325 MG Tablet PO (05:57)
--- NOTE | 2023-10-17 07:37 | PCM.PN.GU ---
Subjective Subjective s/p left partial nephrectomy doign well d/c diego ambulate reg diet and home later todya Objective Data Objective Data Vital Signs: Vital Signs Temp Pulse Resp BP Pulse Ox O2 Del Method O2 Flow Rate 98.2 F 72 18 141/79 H 97 Room Air 6 10/17/23 05:45 10/17/23 05:45 10/17/23 05:45 10/17/23 05:45 10/17/23 05:45 10/17/23 05:45 10/16/23 12:55 Oxygen Flow Rate (L/min) 6 Oxygen Delivery Method Room Air Weight: 64 kg Body Mass Index (BMI) 18.1 Intake & Output: Intake and Output for Last 24 Hours 10/15/23 10/16/23 10/17/23 23:59 23:59 23:59 Intake Total 2191.33 / 2191.33 1050 / 1050 Output Total 1150 / 1150 600 / 600 Balance 1041.33 / 1041.33 450 / 450 Lab / Micro Data 10/08/23 08:01 10/08/23 08:01
[2023-10-17] MEDS: Magnesium Chloride 64 MG Delay Rel.Tablet 128 MG PO (07:57)
[2023-10-17] MEDS: Amiodarone 200 MG Tablet PO (07:57)
[2023-10-17] MEDS: Docusate Sodium 100 MG Capsule 200 MG PO (07:57)
[2023-10-17] MEDS: Pantoprazole Sodium 20 MG Tablet PO (07:58)
--- NOTE | 2023-10-17 10:07 | CASEMGMT ---
Patient has order for discharge today. RN CM in to discuss needs at discharge. Patient denies needs or help at discharge. Patient had no further questions or concerns.
[2023-10-17 10:15] VITALS: BP 146/76; PULSE 70; RESP 18; TEMP 36.8; O2SAT 97
--- NOTE | 2023-10-17 12:19 | CASEMGMT ---
ADVANCED DIRECTIVE VALIDATION Noted in chart patient's is listed as the POAHC. No documents scanned into system that this television writer could find. Presented to patient's room, to see if could bring documents into hospital when comes to pick patient up, but already in room. Spoke with patient and . confirms Advnaced Directives are in place and knows where paperwork is. This television writer asked patient and to bring documents back into hospital when able, or at next time at hospital for an appointment. Patient and agreed. -ED De La Torre
--- NOTE | 2023-10-17 12:44 | PHA.DC_ITS ---
Pharmacy [facility] has performed discharge medication reconciliation and counseling for this patient. The patient's discharge medication list was reviewed for discrepancies and discrepancies were resolved. The patient was counseled on the following discharge medications and changes in medications for homegoing were reviewed. 1. DOCUSATE 2. OXYCODONE 3. ON ELIQUIS--> NOTIFIED TO HOLD AND RESUME ON 10/30/23 PER HI INSTRUCTIONS The Reason for Use, instructions for use, and potential side effects were reviewed for all new medications. The patient's questions regarding all of their medications were answered. The patient was able to verbally demonstrate an understanding of their discharge medications. Medications at Discharge Home Medications amiodarone 200 mg tablet 200 mg PO BID 10/07/23 apixaban 5 mg tablet (Eliquis) 5 mg PO BID 10/07/23 ascorbic acid (vitamin C) 500 mg tablet (Vitamin C) 500 mg PO DAILY 10/07/23 cetirizine 10 mg tablet (24Hour Allergy) 10 mg PO DAILY 10/07/23 diazepam 5 mg tablet 5 mg PO BID PRN dizziness or vertigo 10/07/23 magnesium 250 mg tablet 250 mg PO DAILY 10/07/23 meclizine 25 mg chewable tablet (Antivert) 25 mg PO DAILY PRN dizziness 10/07/23 multivitamin (Daily Multi-Vitamin tablet) 1 tab PO DAILY 10/07/23 omega [id number] oil 1,200 mg (144 mg-216 mg) capsule (Fish Oil) 1 cap PO DAILY 10/07/23 omeprazole 20 mg capsule,delayed release 20 mg PO DAILY 10/07/23 docusate sodium 100 mg capsule (Colace) 100 mg PO BID #20 caps 10/16/23 oxycodone 5 mg tablet 5 mg PO Q6H PRN pain 7 days #14 tabs 10/16/23
== END 2023-10-17 13:26 | disposition home or self-care (01) ==
LOC: SDC 07:13 → AC 07:13 → SDC 14:05 → MS3 14:06
PROVIDERS: Anesthesiology; PCP Family Medicine; Referring Provider Urology; Visit Provider Urology
PROC: (CPT 50543; principal; 2023-10-16 08:40)
DX: D30.02 Benign neoplasm of left kidney (principal); I48.91 Unspecified atrial fibrillation; G47.30 Sleep apnea, unspecified; K21.9 Gastro-esophageal reflux disease without esophagitis; Z79.899 Other long term (current) drug therapy; Z79.01 Long term (current) use of anticoagulants
CPT/HCPCS: 50543; S2900; 00862; 36415; 80048; 85027; 88305; 88307; 93005; J7030; J7120; A4216; J2405

== ENCOUNTER → 2024-01-24 | Outpatient (CLI) | payer MEDICARE, SELFPAY ==
--- NOTE | 2024-01-24 07:41 | CT_ITS ---
STUDY: CT ABDOMEN AND PELVIS WITH AND WITHOUT CONTRAST REASON FOR EXAM: Male, 73 years old. 2 week history of gross hematuria. History of prostate cancer.. RADIATION DOSAGE (If Supplied By Facility): CTDIvol = ( 10.85 ) mGy, DLP = ( 890.40 ) mGycm TECHNIQUE: Transaxial images were obtained from the dome of the diaphragm to the symphysis pubis without oral contrast. IV 100mL Isovue-370 was administered. Sagittal and coronal images were reconstructed. Individualized dose optimization techniques were used for this CT. COMPARISON: None. FINDINGS: Focal increased markings in the anterior medial aspect of the right middle lobe suggestive of scarring. The visualized portions of the heart are within normal limits. Mild scarring in the anteromedial aspect of the lingular segment of the left upper lobe. Normal liver. Normal gallbladder and extrahepatic biliary system. Normal spleen. Normal pancreas. Normal bilateral adrenal glands. There is a 2.2 cm cyst in the upper posterior aspect of the right kidney. There is also evidence of a 2 cm cyst in the anterior mid lower aspect of the right kidney. There is a 7.5 mm cyst with increased density within it in the medial inferior pole of the right kidney. There is a 2.3 cm x 1.8 cm hypodensity in the posterior midportion of the left kidney. This not a typical cyst. Further follow-up recommended. Small cyst seen in the upper pole of the left kidney. There is a small hiatal hernia. Normal small intestine. There are scattered colonic diverticula consistent with diverticulosis. The patient is status post appendectomy. There is scattered atherosclerotic calcification of the abdominal aorta, without a demonstrated aneurysm. Normal inferior vena cava. Normal retroperitoneum. Mild degree of diffuse bladder wall thickening. The patient is status post prostatectomy. Prominent soft tissue is seen in the prostate bed. Clinical correlation recommended. Normal abdominal wall. There are degenerative changes of the visualized lumbar spine. CT/CT Abd/Pelvis W/WO Contrast IMPRESSION: Findings suggestive of scarring in the anterior medial aspect of the right middle lobe and lingular segment of the left upper lobe. Right renal cysts. Small cysts are seen in the left kidney as well as a 2.3 cm x 1.8 cm hypodense nodule in the posterior midportion of left kidney. This not a typical cyst. Coarse with ultrasound recommended. Status post prostatectomy. Soft tissue prominence in the prostate bed. Electronically Signed: Demetrio Dickey MD at 8:59 EDT ,
[2024-01-24 08:03] LABS: CREATININE FINGERSTICK 1.1 mg/dL (0.70-1.30); EGFR FINGERSTICK > 60.0000 mL/min (>60)
== END | disposition home or self-care (01) ==
LOC: CT 07:39
PROVIDERS: PCP Family Medicine; Referring Provider Nurse Practitioner; Visit Provider Nurse Practitioner
DX: R31.0 Gross hematuria (principal)
CPT/HCPCS: 74178; Q9967